=== PATIENT | male | born 1940 | race Caucasian/White ===

== ENCOUNTER 2019-06-25 09:30 | Outpatient (RCR) | payer SELFPAY | END 2020-01-20 14:22 | disposition home or self-care (01) | LOC: ANHCPRIII 09:30 | PROVIDERS: PCP Family Medicine; Visit Provider Internal Medicine Cardiovascular Disease | DX: I25.10 Atherosclerotic heart disease of native coronary artery without angina pectoris (principal) | CPT/HCPCS: 99199 ==

== ENCOUNTER 2020-07-14 10:10 | Outpatient (CLI) | payer MEDICARE, SELFPAY ==
--- NOTE | ~2020-07-14 | CT_ITS ---
EXAMINATION: CT lung screening DATE: 07/14/2020 10:38 INDICATION: Screening for malignant neoplasm. Personal history of tobacco dependence. TECHNIQUE: Computed tomography (CT) of the chest was performed without intravenous contrast. The dose -length product was 236.99 mGy-cm. Automated exposure control and iterative reconstruction technique were employed. COMPARISON: Chest dated 07/28/2018 FINDINGS: No significant pleural or pericardial effusion. Moderate size hiatal hernia. Heart size nor mal. No thoracic lymphadenopathy. Status post median sternotomy for CABG. There are pacemaker leads p resent. There is emphysema. There is lingular atelectasis/scarring. No endobronchial lesions. There a re a few calcified granulomas of the lung parenchyma. There are a few small SCATTERED 1-2 mm nodules which are not definitively calcified, likely benign. There is a 1.7 cm right renal cyst. IMPRESSION: 1. Lung-RADS category 2: Benign appearance or behavior. Continue annual screening with noncontrast lo w-dose chest CT in 12 months. Reviewed, dictated and finalized at location B. IMPRESSION: 1. Lung-RADS category 2: Benign appearance or behavior. Continue annual screeni ng with noncontrast low-dose chest CT in 12 months.
--- NOTE | ~2020-07-14 | US_ITS ---
EXAMINATION: US aorta [facility] scr[facility] DATE: 07/14/2020 11:25 CDT INDICATION: Hypertension, diabetes, obesity and high cholesterol TECHNIQUE: Grayscale, color Doppler, and pulsed Doppler images of the aorta and common iliac arteries were obtained. COMPARISON: None. FINDINGS: The proximal aorta measures 2.5 cm greatest sagittal dimension. The mid aorta measures 2.2 cm greates t sagittal dimension. The distal aorta measures 2.3 cm greatest sagittal dimension. The right common internal iliac artery measures 11 mm. The left common iliac artery measures 11 mm. There is moderate diffuse atherosclerosis. IMPRESSION: 1. Moderate diffuse atherosclerosis without abdominal aortic aneurysm. Reviewed, dictated and finalized at location B.
== END 2020-07-14 10:11 | disposition home or self-care (01) ==
PROVIDERS: PCP Family Medicine; Visit Provider Family Medicine
DX: Z12.2 Encounter for screening for malignant neoplasm of respiratory organs (principal); Z87.891 Personal history of nicotine dependence; Z13.6 Encounter for screening for cardiovascular disorders; I70.0 Atherosclerosis of aorta
CPT/HCPCS: 71271; 76706

== ENCOUNTER 2020-10-06 14:06 | Outpatient (CLI) | payer MEDICARE, SELFPAY ==
--- NOTE | ~2020-10-06 | US_ITS ---
EXAMINATION: US art doppler w press LE DATE: 10/06/2020 14:50 INDICATION: Peripheral vascular disease, unspecified. TECHNIQUE: Segmental pressures and plethysmographic and Doppler waveforms of the brachial and lower e xtremity arteries were obtained. COMPARISON: None. FINDINGS: Right and left brachial artery pressures of 144 mm Hg and 159 mm Hg, respectively, are concordant (no rmal difference <= 30 mmHg). The right high-thigh pressure index is 1.13 (normal > 1.2). The right ankle-brachial index (MAURILIO) is 1 .11 (normal >= 0.9-1.0). The right great toe-brachial index (TBI) is 0.72 (normal >= 0.65). Arterial Doppler waveforms are at least triphasic from common femoral artery to popliteal artery and biphasic at the ankle. The left below-knee pressure index is 1.21. The left MAURILIO could not be measured due to inability to cu ff-occlude the arteries. The left TBI is 0.64. Arterial Doppler waveforms are at least triphasic in c ommon femoral artery and biphasic from superficial femoral artery to the ankle. IMPRESSION: 1. Borderline-decreased left TBI, consistent with left-sided arterial occlusive disease. 2. No significant right-sided arterial occlusive disease. Reviewed, dictated and finalized at location A.
== END 2020-10-06 14:07 | disposition home or self-care (01) ==
PROVIDERS: PCP Family Medicine; Visit Provider Family Medicine
DX: I73.9 Peripheral vascular disease, unspecified (principal)
CPT/HCPCS: 93923

== ENCOUNTER 2022-05-16 09:23 | Outpatient (CLI) | payer MEDICARE, SELFPAY ==
[2022-05-16 20:52] LABS: Alanine Aminotransferase 16 U/L (6-50); Albumin Level 4.2 g/dL (3.5-5.1); Alkaline Phosphatase 46 U/L (38-126); Anion Gap 3 mmol/L (8-16); Aspartate Amino Transferase 44 U/L (17-59); Bilirubin,Total 0.4 mg/dL (0.2-1.3); Blood Urea Nitrogen 47 mg/dL (9-20); Calcium 9.7 mg/dL (8.4-10.2); Carbon Dioxide 33 mmol/L (22-30); Chloride 102 mmol/L (98-107); Estimated Glomerular Filt Rate 39; Glucose 74 mg/dL (65-110); Potassium 4.7 mmol/L (3.4-5.0); Sodium 138 mmol/L (137-145)
[2022-05-16 22:37] LABS: Hemoglobin A1C 5.5 % (<5.7)
== END 2022-05-16 09:24 | disposition home or self-care (01) ==
LOC: ANHGOSHLAB 09:24
PROVIDERS: PCP Family Medicine; Visit Provider Family Medicine
DX: I10 Essential (primary) hypertension (principal); E11.9 Type 2 diabetes mellitus without complications
CPT/HCPCS: 36415; 80053; 83036

== ENCOUNTER 2022-05-22 11:29 | Outpatient (CLI) | payer MEDICARE, SELFPAY ==
[2022-05-22 19:45] LABS: Add Urine Microscopic? YES; Appearance Urine Cloudy (Clear); Bilirubin Urine 1+ (Negative); Blood Urine 3+ (Negative); Color Urine Brown (Yellow); Glucose Urine UA Negative (Negative); Ketones Urine Negative (Negative); Leukocyte Esterase Ur Trace LEU/UL (Negative); Nitrate Urine Negative (Negative); Protein Urine 2+ mg/dL (Negative); Urobilinogen Urine 0.2 mg/dL (<2.0)
[2022-05-22 19:54] LABS: RBC Urine >75 /hpf (0-2); Squamous Epithelial Cell Urine Few /hpf (Few); WBC Urine 0-3 /hpf
== END 2022-05-22 11:30 | disposition home or self-care (01) ==
LOC: ANHGOSHLAB 11:31
PROVIDERS: PCP Family Medicine; Visit Provider Family Medicine
DX: R82.998 Other abnormal findings in urine (principal); R31.9 Hematuria, unspecified
CPT/HCPCS: 81001; 87086

== ENCOUNTER 2022-06-27 15:12 | Outpatient (CLI) | payer MEDICARE, SELFPAY ==
--- NOTE | ~2022-06-27 | CT_ITS ---
EXAMINATION: CT abdomen pelvis wo con DATE: 06/27/2022 15:32 INDICATION: Gross hematuria TECHNIQUE: Computed tomography (CT) of the abdomen and pelvis was performed without intravenous contr ast. The dose-length product was 210.37 mGy-cm. Automated exposure control and iterative reconstructi on technique were employed. COMPARISON: CT dated 07/01/2016. FINDINGS: Lung bases are unremarkable. Heart size normal. There is atherosclerosis. No significant pl eural or pericardial effusion. There is mild nonspecific bilateral perinephric stranding. There is a 1.3 cm right renal cyst anteriorly. There are gallstones. Small hiatal hernia. Moderate retained debr is in the stomach. Nonobstructive bowel pattern. There are bilateral renal arterial calcifications. No definite renal/ureteral stones. Small amount of gas in the nondependent aspect of the bladder lumen. Correlate for recent instrumentation. No bladde r stones or masses are seen. No lymphadenopathy. 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 Moderate lumbar spondylosis. IMPRESSION: 1. Small amount of nondependent gas in the bladder lumen which may be from recent instrumentation or infection. Correlate clinically. 2: Cholelithiasis. Reviewed, dictated and finalized at location A. IMPRESSION: 1. Small amount of nondependent gas in the bladder lumen which may be from rece nt instrumentation or infection. Correlate clinically. 2: Cholelithiasis.
== END 2022-06-27 15:13 | disposition home or self-care (01) ==
PROVIDERS: PCP Family Medicine; Visit Provider Urology
DX: R31.0 Gross hematuria (principal); K80.20 Calculus of gallbladder without cholecystitis without obstruction
CPT/HCPCS: 74176

== ENCOUNTER 2022-07-15 10:24 | Outpatient (CLI) | payer MEDICARE, SELFPAY ==
--- NOTE | 2022-07-15 10:36 | ECG_ITS ---
Measurements Intervals [place] Rate: P: NV: QRS: QRSD: T: QT: QTc: Interpretive Statements SINUS RHYTHM WITH FIRST DEGREE AV BLOCK ST DEVIATION AND MARKED T-WAVE ABNORMALITY IN THE ANTEROLATERAL LEADS, CONSIDER ISCHEMIA ST DEVIATION AND MARKED T-WAVE ABNORMALITY IN THE INFERIOR LEADS, CONSIDER ISCHEMIA PREMATURE VENTRICULAR CONTRACTION Electronically Signed On 07-16-2022 14:53:08 CDT by Oralia Hoover M.D.
[2022-07-15 13:14] LABS: INR 1.1; Prothrombin Time 13.5 Seconds (11.1-14.7)
[2022-07-15 13:15] LABS: Partial Thromboplastin Time 27.4 SECONDS (22.3-36.8)
[2022-07-15 13:22] LABS: Anion Gap 6 mmol/L (8-16); Blood Urea Nitrogen 38 mg/dL (9-20); Calcium 9.2 mg/dL (8.4-10.2); Carbon Dioxide 34 mmol/L (22-30); Chloride 105 mmol/L (98-107); Estimated Glomerular Filt Rate 39; Glucose 88 mg/dL (65-110); Potassium 4.5 mmol/L (3.4-5.0); Sodium 145 mmol/L (137-145)
== END 2022-07-15 10:25 | disposition home or self-care (01) ==
PROVIDERS: Anesthesiology; PCP Family Medicine; Visit Provider Urology
DX: Z01.812 Encounter for preprocedural laboratory examination (principal); Z01.810 Encounter for preprocedural cardiovascular examination; Z79.899 Other long term (current) drug therapy; N18.30 Chronic kidney disease, stage 3 unspecified; I12.9 Hypertensive chronic kidney disease with stage 1 through stage 4 chronic kidney disease, or unspecified chronic kidney disease
CPT/HCPCS: 36415; 80048; 85610; 85730; 93005

== ENCOUNTER 2022-07-18 01:31 | Day surgery (SDC) | payer MEDICARE, SELFPAY ==
--- NOTE | 2022-07-09 08:55 | PM.HPGS ---
History of Present Illness History of Present Illness Consent: Risks, benefits, and alternatives have been discussed and questions answered. Patient agrees to proceed with procedure. Chief complaint: gross hematuria Narrative: Israel Christianson is a 81 year old male recently underwent evaluation for gross hematuria. Cystoscopy in the office revealed a papillary lesion in the anterior bladder wall near the bladder neck, consistent with urothelial carcinoma. At the time of this dictation he has a CT scan of the abdomen and pelvis without contrast scheduled but yet to be done. He presents today for TURBT, bilateral retrograde pyelography and gemcitabine installation. He is aware the risk including, but not limited to, recurrent neoplasm requiring additional therapy, injury to the bladder. Review of Systems Cardiovascular: Cardiovascular: Denies chest pain, Denies lightheadedness, Denies palpitations and Denies dyspnea Respiratory: Respiratory: Denies dyspnea Gastrointestinal: Gastrointestinal: Denies diarrhea, Denies nausea and Denies vomiting Genitourinary: Genitourinary: Denies hematuria and Denies dysuria Endocrine: Endocrine: Denies palpitations PMFSH Past Medical History Medical History Bradycardia CAD in [place] artery Chronic venous insufficiency of lower extremity CKD (chronic kidney disease) stage 3, GFR 30-59 ml/min Dyslipidemia Essential (primary) hypertension GERD without esophagitis Type 2 diabetes mellitus without complications Ventral hernia Vitamin D deficiency Surgical History Surgical History History of angioplasty of peripheral vessel 12/2020: left common femoral artery and left superficial femoral artery angioplasty History of coronary artery bypass graft (~11/2014) 11/2014 History of hernia repair (~07/19/16) History of rectal surgery (~2009) 2009 and 2010 - repair of rectal tear History of ventral hernia repair 07/2016 Hx of cardiac pacemaker 07/2018 Hx of tonsillectomy (~1947) [place] teeth extracted (~1960) Family History Family History Father Family history of cardiovascular disease Mother Family history of Alzheimer's disease Family history of cardiovascular disease Sibling Family history of lung cancer Family history of cardiovascular disease Other Cerebrovascular accident Hypertension Social History Social History Smoking packs per day: 1 Smoking cigarettes per day: 20.0 Years smoked: 55 Smoking pack-years: 55.00 Smoking status: Current every day smoker Tobacco type: cigarettes Second hand tobacco smoke exposure: No Alcohol intake: former Alcohol use details: stopped drinking alcohol in 1981 Substance use: never Substance use type: does not use Lack of Transportation: No Lack of Food: Never True Current Housing: I Have Housing Concerned About Future Housing: No Difficulty Paying Gas/Electric Bills: No Difficulty Paying for Meds: No Currently Unemployed: No Education: Master's Degree or Higher Difficulty w/ Childcare or Family Care: No Living arrangements: with family Additional living arrangements comments: Occupation/Education: retired Gender identity (if verbalized by the patient): Male Sexual Orientation (if Verbalized by the Patient): Straight or Heterosexual Meds Home Medications and Allergies Home Medications Medication Instructions Recorded Confirmed Type clonidine HCl 0.2 mg tablet 0.2 mg PO DAILY 10/12/19 05/16/22 History hydrochlorothiazide 25 mg tablet 25 mg PO DAILY 10/12/19 05/16/22 History ticagrelor 90 mg tablet (Brilinta) 90 mg PO Q12H 10/12/19 05/16/22 History azilsartan medoxomil 80 mg tablet 80 mg PO DAILY 11/29/19 05/16/22 History (Edarbi) atorvastatin
[2022-07-10 13:14] VITALS: BMI 26.9
--- NOTE | 2022-07-10 13:27 | PC.NURSE ---
PRE-OP INSTRUCTIONS, PLEASE READ CAREFULLY Report to the Outpatient Waiting Room, entrance under the green pavilion located off [facility], at time _1000_ on date _07/18/22_. Planned Procedure Time: _1200_. Time changes happen often and if your time is changed the preop area will call you the afternoon before. - You and your visitor will be asked to self-screen and do not enter if you have any COVID symptoms. - Only one visitor is requested with a max of two and NO children visitors are allowed at this time. - The patient visitor may be requested to leave or wait in car when not with patient due to distancing restrictions. - A mask is optional within the hospital at this time. Patients may have clear liquids (water, carbonated beverages, clear teas, apple juice) until 3 hours prior to surgery (0900 AM) with a maximum of 20 ounces. - No food from midnight until time of surgery Take the following medications with a SIP of water the morning of surgery: _CLONIDINE_ DO NOT STOP ANY OF YOUR OTHER PRESCRIPTION MEDICATIONS PRIOR TO SURGERY ?EXCEPT THE FOLLOWING Medications to discontinue _BRILINTA PER DR. BECERRA'S INSTRUCTIONS_ Date to take last dose Please no make-up, nail arabic, hairspray, perfume, deodorant, or body powder the day of surgery. No jewelry (including any body piercings) or valuables the day of surgery, leave them at home. Please take a shower or bath the night before, or the morning of, surgery with an antibacterial soap. Wear comfortable, loose fitting clothing. - Jewelry must be removed prior to entering the operating room. Rings and piercings that are not removed may be cut off. - The hospital will not accept responsibility for valuables. - Please leave all valuables, including medications, at home the day of surgery. If you are going home after surgery, a licensed flag car driver must drive you home. - NO public transportation without another adult if you receive anesthesia. - We recommend that an adult stay with you for 24 hours following discharge. - We also recommend that you do not drive, make important decision, drink alcoholic beverages, or take any drugs that were not prescribed by your health care provider for at least 24 hours after your discharge time. Follow any additional instructions given to you from your surgeon. If you or anyone in your household have experienced Covid symptoms in the past week, please notify your surgeon or the nurse liaison at the phone number below for possible testing. Telephone instructions given to _PATIENT_and asked if any additional questions and then verbalized understanding. Patient advised to call surgeon office or pre surgery nurse liaison [phone] if any additional questions.
[2022-07-18] VITALS (11 sets, daily range): BP systolic 107–133; BP diastolic 40–107; PULSE 60–68; RESP 12–18; TEMP 36.2–36.3; O2SAT 6–100
--- NOTE | ~2022-07-18 | XR_ITS ---
EXAMINATION: XR retrograde pyelogram BI DATE: 07/18/2022 12:33 INDICATION: Gross hematuria. Bilateral retrograde pyelograms TECHNIQUE: 104 fluoroscopic images of the abdomen and pelvis were obtained during procedure performed by Dr. Hernandez. Radiologist was not present for the imaging or procedure. The amount of fluoroscopy t severo used during this procedure was 0.5 minutes. COMPARISON: CT abdomen pelvis dated 06/27/2022 FINDINGS: Retrograde contrast injection into the right ureter and renal collecting system demonstrates no filli ng defects, urothelial irregularities or fixed strictures. Retrograde contrast injection into the lef t ureter and renal collecting system demonstrates a few mobile lucent gas bubbles which change in siz e and configuration during the course of the injection. No other filling defects or urothelial irregu larities or fixed strictures. IMPRESSION: 1. Normal bilateral retrograde pyelograms. Reviewed, dictated and finalized at location A.
--- NOTE | 2022-07-18 06:27 | WPDHPUPDATE1 ---
History and Physical Update Update Date/Time: 07/18/22 06:27 History and Physical has been reviewed, including an updated exam of the patient. There are NO changes in the patient's condition. Risks, benefits, and alternatives have been discussed and questions answered. Patient agrees to proceed with procedure.
[2022-07-18] MEDS: LACTATED RINGERS 1,000 ML 30 ML IV CONT ×2 (11:00→14:02)
--- NOTE | 2022-07-18 11:22 | WPDANESEPPF ---
Anes - Initial Pre Proc Eval Procedure: Operation Date: 07/18/22 12:00 Proposed Procedures p Trans Urethral Resection Bladder Tumor, - Mike Hernandez MD s Bilateral retrograde pyelogram with Gemcitabine Instillation - Mike Hernandez MD Date/Time: 07/18/22 11:22 Surgeon: Mike Hernandez MD Pre Op Diagnosis: gross hematuria Patient Data Age: 81 Gender: M Height: 1.7 m Weight: 78.6 kg Last Vital Signs Temp 36.2 C L 07/18/22 09:50 Pulse 64 07/18/22 09:50 Resp 16 07/18/22 09:50 BP 114/46 L 07/18/22 09:50 Pulse Ox 99 07/18/22 09:50 O2 Del Method Room Air 07/18/22 09:50 Allergies Allergy/AdvReac Type Severity Reaction Status Date / Time aspirin Allergy Intermediate Hives Verified 07/18/22 10:12 Home Medications Medication Instructions Recorded Confirmed Type clonidine HCl 0.2 mg tablet 0.2 mg PO DAILY 10/12/19 07/18/22 History hydrochlorothiazide 25 mg tablet 25 mg PO DAILY 10/12/19 07/18/22 History ticagrelor 90 mg tablet (Brilinta) 90 mg PO Q12H 10/12/19 07/18/22 History azilsartan medoxomil 80 mg tablet 80 mg PO DAILY 11/29/19 07/18/22 History (Edarbi) omeprazole 20 mg capsule,delayed 20 mg PO DAILY #90 caps 02/04/22 07/18/22 Rx release cholecalciferol (vitamin D3) 50 50 mcg PO DAILY #90 tabs 04/10/22 07/18/22 Rx mcg (2,000 unit) tablet atorvastatin 40 mg tablet 40 mg PO QHS #90 tabs 07/09/22 07/18/22 Rx fenofibrate 54 mg tablet 54 mg PO DAILY #90 tabs 07/09/22 07/18/22 Rx Patient hx anesthesia problems: none Family hx anesthesia problems: none Results Review: All pre-operative results and documents have been reviewed as part of the pre-operative evaluation. [facility] Past Medical History Medical History Bradycardia CAD in [place] artery Chronic venous insufficiency of lower extremity CKD (chronic kidney disease) stage 3, GFR 30-59 ml/min Dyslipidemia Essential (primary) hypertension GERD without esophagitis Type 2 diabetes mellitus without complications Ventral hernia Vitamin D deficiency Surgical History Surgical History History of angioplasty of peripheral vessel 12/2020: left common femoral artery and left superficial femoral artery angioplasty History of coronary artery bypass graft (~11/2014) 11/2014 History of hernia repair (~07/19/16) History of rectal surgery (~2009) 2009 and 2010 - repair of rectal tear History of ventral hernia repair 07/2016 Hx of cardiac pacemaker 07/2018 Hx of tonsillectomy (~1947) [place] teeth extracted (~1960) Family History Family History Father Family history of cardiovascular disease Mother Family history of Alzheimer's disease Family history of cardiovascular disease Sibling Family history of lung cancer Family history of cardiovascular disease Other Cerebrovascular accident Hypertension Social History Social History Smoking packs per day: 1 Smoking cigarettes per day: 20.0 Years smoked: 55 Smoking pack-years: 55.00 Smoking status: Current every day smoker Tobacco type: cigarettes Second hand tobacco smoke exposure: Yes Alcohol intake: former Alcohol use details: RECOVERING ALCOHOLIC QUIT 1981 Substance use: never Substance use type: does not use Lack of Transportation: No Lack of Food: Never True Current Housing: I Have Housing Concerned About Future Housing: No Difficulty Paying Gas/Electric Bills: No Difficulty Paying for Meds: No Currently Unemployed: No Education: Master's Degree or Higher Difficulty w/ Childcare or Family Care: No Living arrangements: with family Additional living arrangements comments: Occupation/Education: retired Gender identity (if verbalized by the patient): Male Sexual Orientati
[2022-07-18] MEDS: ceFAZolin 2 GM/D5W 50 ML 2 GM/50 ML BAG IVPB (11:58)
[2022-07-18] MEDS: SODIUM CHLORIDE 0.9% IV 23.7 ML, GEMCITABINE HCL 1,000 MG BLADDER ×2 (12:22→12:23)
[2022-07-18] MEDS: LIDOCAINE HCL 2% GEL UROJET 10 ML PKG MUCOUS MEM (12:25)
--- NOTE | 2022-07-18 12:33 | W.PM.PROC2 ---
Procedure Note - Detailed Date of Procedure 07/18/22 Pre-op Diagnosis Bladder cancer Post-op Diagnosis Same Procedure Performed 1. Cystoscopy with bilateral retrograde pyelography 2. TURBT medium Surgeon Mike Hernandez MD Anesthesia General Description of Procedure was brought to the operative suite prepped draped in routine sterile fashion while in dorsal lithotomy position after the uneventful induction of a general LMA anesthetic. A 21 F rigid cystoscope was placed in his bladder. He has no urethral stricture with very moderate prostatic hyperplasia for a man his age. He has lateral lobe enlargement without significant median lobe. Bladder shows slight trabeculation. As a single orthotopic ureteral orifice bilaterally. Eight F ball-tip catheter was used to obtain bilateral retrograde pyelograms which showed no evidence of upper urinary tract filling defect obstruction or other identifiable pathology. He has had a noncontrast CT scan the abdomen and pelvis recently that shows normal renal parenchyma. His bladder mucosa is a perfectly normal with the exception of a papillary neoplasm at the 12 o'clock position in the anterior bladder wall near the bladder neck. Prostatic urethra shows no evidence of urothelial neoplastic changes. Using a loop electrode this area of abnormality was resected its entirety with an attempt made to include detrusor muscle for pathological evaluation of invasion. The base and periphery were cauterized with both a loop electrode and a rollerball electrode. Scope was removed patient was taken recovery room good condition. Drains Yes Packing No Pathology Yes Complications No immediate complications Condition Stable Disposition PACU
--- NOTE | 2022-07-18 12:40 | W.PM.PROC2 ---
Procedure Note - Detailed Date of Procedure 07/18/22 Pre-op Diagnosis Bladder cancer Post-op Diagnosis Same Procedure Performed Gemcitabine installation Surgeon Mike Hernandez MD Anesthesia None Description of Procedure With the patient in the supine position, a 16F Guzman catheter is placed using sterile technique. Using a protective facemask, gown and double layer of gloves Gemcitabine 2gm in 100cc saline is administered through the catheter/into the bladder. The catheter is then plugged. Patient was instructed to lie supine x20min, then to roll both the left and right x20 min. each. Total dwell time will be 60 min., after which the bladder will be drained and catheter removed. Drains No Packing No
[2022-07-18] MEDS: fentaNYL CITRATE INJ (*CRX) 100 MCG/2 ML VIAL 25 MCG IV PUSH ×3 (12:54→13:13)
[2022-07-18] MEDS: SODIUM CHLORIDE 0.9% IV 50 ML BAG 150 ML IRRIGATION (13:40)
[2022-07-18] MEDS: oxyCODONE HCL (*CRX) 5 MG TAB IR PO (14:32)
--- NOTE | 2022-07-18 16:06 | SUR.PHASEII ---
late entry at 1500. pt diastolic was in the 40s. pt preop diastolic was in the 40s. this nurse called dr aranda and informed his about his low diastolic. pt is asymptomatic. had 1 liter of fluid today. hx of pacemaker. pt denied of any dizziness or lightheadedness with ambulation or positional changes. HR in the 60s. pt A&Ox4. appears well looking and hemodynamically stable.
== END 2022-07-18 15:15 | disposition home or self-care (01) ==
PROVIDERS: PCP Family Medicine; Visit Provider Urology
PROC: 0TBB8ZZ Excision of Bladder, Via Natural or Artificial Opening Endoscopic (ICD-10-PCS; CPT 52235; principal; 2022-07-18 12:00)
PROC: (CPT 52352; 2022-07-18 12:00)
DX: C67.3 Malignant neoplasm of anterior wall of bladder (principal); N40.0 Benign prostatic hyperplasia without lower urinary tract symptoms; I25.10 Atherosclerotic heart disease of native coronary artery without angina pectoris; I12.9 Hypertensive chronic kidney disease with stage 1 through stage 4 chronic kidney disease, or unspecified chronic kidney disease; E11.22 Type 2 diabetes mellitus with diabetic chronic kidney disease; N18.30 Chronic kidney disease, stage 3 unspecified; I87.2 Venous insufficiency (chronic) (peripheral); K21.9 Gastro-esophageal reflux disease without esophagitis; E55.9 Vitamin D deficiency, unspecified; E78.5 Hyperlipidemia, unspecified; Z95.1 Presence of aortocoronary bypass graft; Z95.0 Presence of cardiac pacemaker; F17.210 Nicotine dependence, cigarettes, uncomplicated; Z79.01 Long term (current) use of anticoagulants
CPT/HCPCS: 52235; 51720; 36415; 74420; 80048; 85610; 85730; 88305; 93005; A9270; C1758; C1769; C1887; J0690; J1100; J2405; J2704; J3010; J7120; J9201

== ENCOUNTER 2022-11-13 09:25 | Outpatient (CLI) | payer MEDICARE, SELFPAY ==
[2022-11-13 19:09] LABS: Alanine Aminotransferase 22 U/L (6-50); Albumin Level 4.4 g/dL (3.5-5.1); Alkaline Phosphatase 43 U/L (38-126); Anion Gap 6 mmol/L (8-16); Aspartate Amino Transferase 54 U/L (17-59); Basophils Percent Auto 0.4 % (0.2-1.2); Bilirubin,Total 0.5 mg/dL (0.2-1.3); Blood Urea Nitrogen 47 mg/dL (9-20); Calcium 9.5 mg/dL (8.4-10.2); Carbon Dioxide 32 mmol/L (22-30); Chloride 102 mmol/L (98-107); Cholesterol 127 mg/dL (0-200); Eosinophils Absolute Auto 0.2 K/mm3 (0-0.3); Eosinophils Percent Auto 2.5 % (0-4.4); Estimated Glomerular Filt Rate 42; Glucose 102 mg/dL (65-110); HDL Direct 38 mg/dL; Hemoglobin 11.5 g/dL (14.0-18.0); Immature Granulocyte Absolute 0.02 K/mm3 (0.00-0.031); Immature Granulocyte Percent A 0.3 % (0-0.5); Lymphocytes Absolute Auto 1.24 K/mm3 (0.9-3.2); Lymphocytes Percent Auto 18.5 % (18.3-44.2); Mean Corpuscular HGB Conc 30.3 g/dl (32-36); Mean Corpuscular Hemoglobin 27.5 pg (26-34); Mean Corpuscular Volume 90.9 fl (80-100); Monocytes Absolute Auto 0.7 K/mm3 (0.1-0.6); Monocytes Percent Auto 9.8 % (2.6-8.5); Neutrophils Absolute Auto 4.6 K/mm3 (1.3-6.7); Neutrophils Percent Auto 68.5 % (45.5-73.1); Platelet Count Result 170 k/mm3 (150-375); Potassium 4.8 mmol/L (3.4-5.0); Red Blood Count 4.18 M/mm3 (4.6-6.20); Red Cell Distribution Width 13.4 % (11.5-14.5); Sodium 140 mmol/L (137-145); Triglycerides 89 mg/dL (<150); White Blood Count 6.7 K/mm3 (4.5-10.0)
[2022-11-13 19:20] LABS: LDL Cholesterol Direct 57 mg/dL
[2022-11-13 19:47] LABS: Creatinine Urine 79.5 mg/dL
[2022-11-13 19:51] LABS: MALB Creatinine Ratio 34.6 mg/g (0-30); Microalbumin Urine Random 27.5 mg/L (0-16.7)
[2022-11-13 19:59] LABS: Vitamin D 25 Hydroxy 68.8 ng/mL
== END 2022-11-13 09:26 | disposition home or self-care (01) ==
LOC: ANHGOSHLAB 09:26
PROVIDERS: PCP Family Medicine; Visit Provider Family Medicine
DX: Z12.5 Encounter for screening for malignant neoplasm of prostate (principal); I87.2 Venous insufficiency (chronic) (peripheral); E78.5 Hyperlipidemia, unspecified; E11.9 Type 2 diabetes mellitus without complications; I10 Essential (primary) hypertension; R00.1 Bradycardia, unspecified; E55.9 Vitamin D deficiency, unspecified; E53.8 Deficiency of other specified B group vitamins
CPT/HCPCS: 36415; 80053; 80061; 82043; 82306; 82607; 83036; 84153; 84443; 85025; G0103

== ENCOUNTER 2023-05-19 09:16 | Outpatient (CLI) | payer MEDICARE, SELFPAY ==
[2023-05-19 13:45] LABS: Basophils Percent Auto 0.3 % (0.2-1.2); Eosinophils Absolute Auto 0.2 K/mm3 (0-0.3); Eosinophils Percent Auto 2.4 % (0-4.4); Hemoglobin 8.7 g/dL (14.0-18.0); Immature Granulocyte Absolute 0.02 K/mm3 (0.00-0.031); Immature Granulocyte Percent A 0.3 % (0-0.5); Lymphocytes Absolute Auto 0.99 K/mm3 (0.9-3.2); Lymphocytes Percent Auto 14.9 % (18.3-44.2); Mean Corpuscular HGB Conc 27.2 g/dl (32-36); Mean Corpuscular Hemoglobin 22.7 pg (26-34); Mean Corpuscular Volume 83.3 fl (80-100); Mean Platelet Volume 10.8 fl (7.4-10.4); Monocytes Absolute Auto 0.7 K/mm3 (0.1-0.6); Monocytes Percent Auto 10.3 % (2.6-8.5); Neutrophils Absolute Auto 4.8 K/mm3 (1.3-6.7); Neutrophils Percent Auto 71.8 % (45.5-73.1); Platelet Count Result 185 k/mm3 (150-375); Red Blood Count 3.84 M/mm3 (4.6-6.20); Red Cell Distribution Width 14.3 % (11.5-14.5); White Blood Count 6.6 K/mm3 (4.5-10.0)
[2023-05-19 13:52] LABS: Alanine Aminotransferase 16 U/L (6-50); Albumin Level 4.3 g/dL (3.5-5.1); Alkaline Phosphatase 49 U/L (38-126); Anion Gap 6 mmol/L (8-16); Aspartate Amino Transferase 64 U/L (17-59); Bilirubin,Total 0.5 mg/dL (0.2-1.3); Blood Urea Nitrogen 36 mg/dL (9-20); Calcium 9.4 mg/dL (8.4-10.2); Carbon Dioxide 31 mmol/L (22-30); Chloride 104 mmol/L (98-107); Estimated Glomerular Filt Rate 49; Glucose 83 mg/dL (65-110); Potassium 4.6 mmol/L (3.4-5.0); Sodium 141 mmol/L (137-145)
[2023-05-19 14:32] LABS: Hypochromasia 2+ (NORMAL); Platelet Estimate Adequate (Adequate); Schistocytes None Seen (NORMAL)
[2023-05-19 15:45] LABS: Iron 35 ug/dL (49-181)
[2023-05-19 15:57] LABS: Percent Iron Saturation 7 % (20-50)
[2023-05-19 16:22] LABS: Ferritin 7.48 ng/mL (11.1-264)
== END 2023-05-19 09:17 | disposition home or self-care (01) ==
LOC: ANHGOSHLAB 09:17
PROVIDERS: PCP Family Medicine; Visit Provider Family Medicine
DX: D64.9 Anemia, unspecified (principal); I10 Essential (primary) hypertension
CPT/HCPCS: 36415; 80053; 82728; 83540; 83550; 85025

== ENCOUNTER 2023-07-15 00:56 | Day surgery (SDC) | payer MEDICARE, SELFPAY ==
[2023-07-03 14:43] VITALS: BMI 26.6
--- NOTE | 2023-07-11 10:49 | SUR.PREOP ---
Patient called regarding upcoming procedure. Reviewed preop instructions, appointment times, and procedure prep.
[2023-07-15 08:41] VITALS: BP 140/47; PULSE 72; RESP 18; TEMP 36.5; O2SAT 100
--- NOTE | 2023-07-15 08:45 | SUR.PREOP ---
Pt states he ate breakfast and lunch yesterday before taking his bowel prep. Pt states he is not sure if his last dose of Brillinta was 3-28 or 3-[address]. Dr. Cifuentes notified.
[2023-07-15] MEDS: LACTATED RINGERS 1,000 ML 150 ML IV CONT (08:56)
--- NOTE | 2023-07-15 09:02 | PM.HPGS ---
History of Present Illness History of Present Illness Consent: Risks, benefits, and alternatives have been discussed and questions answered. Patient agrees to proceed with procedure. 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 Chronic venous insufficiency of lower extremity CKD (chronic kidney disease) stage 3, GFR 30-59 ml/min Colon polyp Dyslipidemia Essential (primary) hypertension GERD without esophagitis History of colon polyps Type 2 diabetes mellitus without complications Ventral hernia Vitamin D deficiency Surgical History Surgical History History of angioplasty of peripheral vessel 12/2020: left common femoral artery and left superficial femoral artery angioplasty History of coronary artery bypass graft (~11/2014) 11/2014 History of hernia repair (~07/19/16) History of rectal surgery (~2009) 2009 and 2010 - repair of rectal tear History of transurethral resection of bladder tumor (TURBT) (~07/2022) History of ventral hernia repair 07/2016 Hx of cardiac pacemaker 07/2018 Hx of tonsillectomy (~194) [place] teeth extracted (~1960) Family History Family History Father Family history of cardiovascular disease Mother Family history of Alzheimer's disease Family history of cardiovascular disease Sibling Family history of lung cancer Family history of cardiovascular disease Other Cerebrovascular accident Hypertension Social History Social History Smoking packs per day: 1 Smoking cigarettes per day: 20.0 Years smoked: 55 Smoking pack-years: 55.00 Smoking status: Current every day smoker Tobacco type: cigarettes Second hand tobacco smoke exposure: Yes Smoking end date: 10/23/22 Alcohol intake: former Alcohol use details: RECOVERING ALCOHOLIC QUIT 1981 Substance use: former Substance use type: does not use Lack of Transportation: No Lack of Food: Never True Current Housing: I Have Housing Concerned About Future Housing: No Difficulty Paying Gas/Electric Bills: No Difficulty Paying for Meds: No Currently Unemployed: No Education: Master's Degree or Higher Difficulty w/ Childcare or Family Care: No Living arrangements: with family Additional living arrangements comments: Occupation/Education: retired Gender identity (if verbalized by the patient): Male Sexual Orientation (if Verbalized by the Patient): Straight or Heterosexual Spiritual care concerns: No Meds Home Medications and Allergies Home Medications Medication Instructions Recorded Confirmed Type clonidine HCl 0.2 mg tablet 0.2 mg PO DAILY 10/12/19 07/03/23 History hydrochlorothiazide 25 mg tablet 25 mg PO DAILY 10/12/19 07/03/23 History azilsartan medoxomil 80 mg tablet 80 mg PO DAILY 11/29/19 07/03/23 History (Edarbi) ticagrelor 60 mg tablet (Brilinta) 60 mg PO BID 11/13/22 07/15/23 History atorvastatin 40 mg tablet 40 mg PO QHS #90 tabs 03/31/23 07/03/23 Rx cholecalciferol (vitamin D3) 50 50 mcg PO DAILY #90 tabs 03/31/23 07/03/23 Rx mcg (2,000 unit) tablet fenofibrate 54 mg tablet 54 mg PO DAILY #90 tabs 03/31/23 07/03/23 Rx omeprazole 20 mg capsule,delayed 20 mg PO DAILY #90 caps 03/31/23 07/03/23 Rx release ferrous sulfate 325 mg (65 mg 325 mg PO BID #180 tabs 05/20/23 07/15/23 Rx iron) tablet,delayed release Allergies Allergy/AdvReac Type Severity Reaction Status Date / Time aspirin Allergy Intermediat
--- NOTE | 2023-07-15 09:07 | WPDANESEPPF ---
Anes - Initial Pre Proc Eval Procedure: Operation Date: 07/15/23 10:00 Proposed Procedures p Colonoscopy - John Gonzalez MD Date/Time: 07/15/23 09:07 Surgeon: John Gonzalez MD Pre Op Diagnosis: hx colon polyps, anemia Patient Data Age: 82 Gender: M Height: 1.7 m Weight: 79.9 kg Last Vital Signs Temp 97.7 F 07/15/23 08:41 Pulse 72 07/15/23 08:41 Resp 18 07/15/23 08:41 BP 140/47 L 07/15/23 08:41 Pulse Ox 100 07/15/23 08:41 O2 Del Method Room Air 07/15/23 08:41 Allergies Allergy/AdvReac Type Severity Reaction Status Date / Time aspirin Allergy Intermediate Hives Verified 07/15/23 08:39 Home Medications Medication Instructions Recorded Confirmed Type clonidine HCl 0.2 mg tablet 0.2 mg PO DAILY 10/12/19 07/03/23 History hydrochlorothiazide 25 mg tablet 25 mg PO DAILY 10/12/19 07/03/23 History azilsartan medoxomil 80 mg tablet 80 mg PO DAILY 11/29/19 07/03/23 History (Edarbi) ticagrelor 60 mg tablet (Brilinta) 60 mg PO BID 11/13/22 07/15/23 History atorvastatin 40 mg tablet 40 mg PO QHS #90 tabs 03/31/23 07/03/23 Rx cholecalciferol (vitamin D3) 50 50 mcg PO DAILY #90 tabs 03/31/23 07/03/23 Rx mcg (2,000 unit) tablet fenofibrate 54 mg tablet 54 mg PO DAILY #90 tabs 03/31/23 07/03/23 Rx omeprazole 20 mg capsule,delayed 20 mg PO DAILY #90 caps 03/31/23 07/03/23 Rx release ferrous sulfate 325 mg (65 mg 325 mg PO BID #180 tabs 05/20/23 07/15/23 Rx iron) tablet,delayed release Patient hx anesthesia problems: none Family hx anesthesia problems: none Results Review: All pre-operative results and documents have been reviewed as part of the pre-operative evaluation. 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 Chronic venous insufficiency of lower extremity CKD (chronic kidney disease) stage 3, GFR 30-59 ml/min Colon polyp Dyslipidemia Essential (primary) hypertension GERD without esophagitis History of colon polyps Type 2 diabetes mellitus without complications Ventral hernia Vitamin D deficiency Surgical History Surgical History History of angioplasty of peripheral vessel 12/2020: left common femoral artery and left superficial femoral artery angioplasty History of coronary artery bypass graft (~11/2014) 11/2014 History of hernia repair (~07/19/16) History of rectal surgery (~2009) 2009 and 2010 - repair of rectal tear History of transurethral resection of bladder tumor (TURBT) (~07/2022) History of ventral hernia repair 07/2016 Hx of cardiac pacemaker 07/2018 Hx of tonsillectomy (~1947) [place] teeth extracted (~1960) Family History Family History Father Family history of cardiovascular disease Mother Family history of Alzheimer's disease Family history of cardiovascular disease Sibling Family history of lung cancer Family history of cardiovascular disease Other Cerebrovascular accident Hypertension Social History Social History Smoking packs per day: 1 Smoking cigarettes per day: 20.0 Years smoked: 55 Smoking pack-years: 55.00 Smoking status: Current every day smoker Tobacco type: cigarettes Second hand tobacco smoke exposure: Yes Smoking end date: 10/23/22 Alcohol intake: former Alcohol use details: RECOVERING ALCOHOLIC QUIT 1981 Substance use: former Substance use type: does not use Lack of Transportation: No Lack of Food: Never True Current Housing: I Have Housing Concerned About Future Housing: No Difficulty Paying Gas/Electric Bills: No Difficulty Paying for Meds: No Currently Unemployed: No Education: Master's Degree or Higher Difficulty w/ Childcare or Fa
[2023-07-15 09:25] VITALS: BP 94/45; PULSE 60; RESP 18; O2SAT 95
[2023-07-15 09:35] VITALS: BP 107/51; PULSE 60; RESP 16; O2SAT 98
[2023-07-15 09:45] VITALS: BP 127/57; PULSE 60; RESP 23; O2SAT 100
== END 2023-07-15 09:53 | disposition home or self-care (01) ==
PROVIDERS: PCP Family Medicine; Visit Provider Internal Medicine Gastroenterology
PROC: 0DJD8ZZ Inspection of Lower Intestinal Tract, Via Natural or Artificial Opening Endoscopic (ICD-10-PCS; CPT 45378; principal; 2023-07-15 10:00)
DX: D64.9 Anemia, unspecified (principal); D12.3 Benign neoplasm of transverse colon; K64.8 Other hemorrhoids; K57.30 Diverticulosis of large intestine without perforation or abscess without bleeding; E78.5 Hyperlipidemia, unspecified; I12.9 Hypertensive chronic kidney disease with stage 1 through stage 4 chronic kidney disease, or unspecified chronic kidney disease; N18.30 Chronic kidney disease, stage 3 unspecified; K21.9 Gastro-esophageal reflux disease without esophagitis; E11.9 Type 2 diabetes mellitus without complications; E55.9 Vitamin D deficiency, unspecified; I25.10 Atherosclerotic heart disease of native coronary artery without angina pectoris; I87.2 Venous insufficiency (chronic) (peripheral); F17.210 Nicotine dependence, cigarettes, uncomplicated; Z79.02 Long term (current) use of antithrombotics/antiplatelets; Z98.890 Other specified postprocedural states; Z95.1 Presence of aortocoronary bypass graft; Z95.0 Presence of cardiac pacemaker; Z85.51 Personal history of malignant neoplasm of bladder; Z80.1 Family history of malignant neoplasm of trachea, bronchus and lung; Z82.49 Family history of ischemic heart disease and other diseases of the circulatory system
CPT/HCPCS: 45385; 88305; J2704; J7120

== ENCOUNTER 2023-12-16 09:15 | Outpatient (CLI) | payer MEDICARE, SELFPAY ==
[2023-12-16 14:54] LABS: Basophils Percent Auto 0.4 % (0.2-1.2); Eosinophils Absolute Auto 0.1 K/mm3 (0-0.3); Eosinophils Percent Auto 1.1 % (0-4.4); Hematocrit 40.4 % (42.0-52.0); Hemoglobin 12.1 g/dL (14.0-18.0); Immature Granulocyte Absolute 0.02 K/mm3 (0.00-0.031); Immature Granulocyte Percent A 0.4 % (0-0.5); Lymphocytes Percent Auto 14.4 % (18.3-44.2); Mean Corpuscular Hemoglobin 27.3 pg (26-34); Mean Corpuscular Volume 91.2 fl (80-100); Mean Platelet Volume 11.3 fl (7.4-10.4); Monocytes Absolute Auto 0.6 K/mm3 (0.1-0.6); Monocytes Percent Auto 10.1 % (2.6-8.5); Neutrophils Absolute Auto 4.1 K/mm3 (1.3-6.7); Neutrophils Percent Auto 73.6 % (45.5-73.1); Platelet Count Result 184 k/mm3 (150-375); Red Blood Count 4.43 M/mm3 (4.6-6.20); White Blood Count 5.5 K/mm3 (4.5-10.0)
[2023-12-16 15:00] LABS: Alanine Aminotransferase 15 U/L (6-50); Albumin Level 4.3 g/dL (3.5-5.1); Alkaline Phosphatase 44 U/L (38-126); Anion Gap 10 mmol/L (4-12); Aspartate Amino Transferase 60 U/L (17-59); Bilirubin,Total 0.5 mg/dL (0.2-1.3); Blood Urea Nitrogen 42 mg/dL (9-20); Calcium 9.7 mg/dL (8.4-10.2); Carbon Dioxide 32 mmol/L (22-30); Chloride 99 mmol/L (98-107); Cholesterol 104 mg/dL (0-200); Estimated Glomerular Filt Rate 36; Glucose 102 mg/dL (65-110); HDL Direct 34 mg/dL; Potassium 4.6 mmol/L (3.4-5.0); Sodium 141 mmol/L (137-145); Triglycerides 100 mg/dL (<150)
[2023-12-16 15:03] LABS: Iron 77 ug/dL (49-181)
[2023-12-16 15:10] LABS: LDL Cholesterol Direct 41 mg/dL
[2023-12-16 15:18] LABS: Percent Iron Saturation 20 % (20-50)
[2023-12-16 15:29] LABS: Prostate Specific Antigen 3.9 ng/mL (< OR = 4.0)
[2023-12-16 15:33] LABS: Hemoglobin A1C 6.1 % (<5.7)
[2023-12-16 16:04] LABS: Folic Acid 7.4 ng/mL (2.76->20)
[2023-12-16 16:59] LABS: Vitamin D 25 Hydroxy 55.8 ng/mL
== END 2023-12-16 09:16 | disposition home or self-care (01) ==
PROVIDERS: PCP Family Medicine; Visit Provider Family Medicine
DX: Z00.00 Encounter for general adult medical examination without abnormal findings (principal); R73.03 Prediabetes; D64.9 Anemia, unspecified; E78.5 Hyperlipidemia, unspecified; I73.9 Peripheral vascular disease, unspecified; Z12.5 Encounter for screening for malignant neoplasm of prostate; E55.9 Vitamin D deficiency, unspecified; I12.9 Hypertensive chronic kidney disease with stage 1 through stage 4 chronic kidney disease, or unspecified chronic kidney disease; N18.31 Chronic kidney disease, stage 3a
CPT/HCPCS: 36415; 80053; 80061; 82306; 82607; 82728; 82746; 83036; 83540; 83550; 84153; 84443; 85025; G0103

== ENCOUNTER 2024-06-01 10:21 | Outpatient (CLI) | payer MEDICARE, SELFPAY ==
--- OUTSIDE RECORDS SUMMARY | 2024-06-01 10:32 | XMS_ITS | Referral Summary ---
Author Organization [facility] D Address [address] [place] [id number] Care Team Providers Care Sales Ledger Administrator Name Role Phone Laura Bartlett MD Primary Care Provider Encounters Date Type Department Care Team Description 05/25/2024 Orders Only [facility] Cardiology [address] [place] [phone] Filippo Moyer MD Cardiac pacemaker (Primary Dx); History of syncope; AV heart block 05/25/2024 8:45 AM INTERNET MARKETING ANALYST Ancillary Procedure [facility] Cardiology [address] [place] [phone] Cardiac pacemaker; AV block from Last 3 Months Allergies Active Allergy Reactions Criticality Noted Date Comments Aspirin Hives,Rash Medium Medications atorvastatin (LIPITOR) 40 mg tablet TAKE ONE TABLET BY MOUTH ONCE DAILY AT BEDTIME 30 tablet 8 Active fenofibrate (TRICOR) 54 mg tablet TAKE ONE TABLET BY MOUTH ONCE DAILY 30 tablet 8 Active metFORMIN (GLUMETZA) 500 mg 24 hr tablet Take 1 tablet (500 mg total) by mouth daily with breakfast Active ergocalciferol (VITAMIN D) 50,000 unit capsule Take 1 capsule (50,000 Units total) by mouth once a week Active cholecalciferol (VITAMIN D-3) 2000 unit tablet Take 1 tablet (2,000 Units total) by mouth daily 2 Active omeprazole (PriLOSEC) 20 mg capsule 2 Active hydroCHLOROthia zide (HYDRODIURIL) 25 mg tablet Take 1 Tablet (25 mg) by mouth daily. 90 tablet 3 4 Active ticagrelor (Brilinta) 60 mg tablet Take 1 Tablet (60 mg) by mouth 2 times daily. 180 tablet 1 4 Active azilsartan (Edarbi) 80 mg Take 1 Tablet (80 mg) by mouth daily. 90 tablet 1 4 Active cloNIDine (CATAPRES) 0.2 mg tablet Take 1 Tablet (0.2 mg) by mouth daily. 90 tablet 1 4 Active Active Problems Problem Noted Date Diagnosed Date Bilateral carotid artery stenosis 12/18/2023 Assessment & Plan (12/18/2023 10:44 AM CDT): Moderate 50-69% stenosis of bilateral internal carotid arteries based on carotid duplex at [facility]. Continue risk factor modification including Brilinta, Lipitor and good blood pressure control. Follow up in 1 year with repeat carotid duplex. Hx of CABG 10/27/2018 Cardiac pacemaker 07/30/2018 Overview (07/30/2018): Biotronik Dual Pacemaker. Dx; High Grade AVB, Syncope. DOI 07/27/2018-João. Biotronik remote monitoring. Office pacemaker checks Q1 yr. Coronary artery disease invo [place]ving [place] coronary artery of [place] heart without angina pectoris 01/13/2017 Assessment & Plan (01/19/2018 10:59 AM CDT): No symptoms of myocardial ischemia. He is allergic to aspirin, so he is on Brilinta. Assessment & Plan (01/13/2017 3:08 PM CDT): No symptoms of myocardial ischemia. He is allergic to aspirin, so will continue Brilinta. Essential hypertension 01/13/2017 Assessment & Plan (12/18/2023 10:44 AM CDT): Stable continue hydrochlorothiazide Assessment & Plan (01/19/2018 11:00 AM CDT): Blood pressure is adequately controlled on current regimen. No change was made. Assessment & Plan (01/13/2017 3:09 PM CDT): Blood pressure is adequately controlled on current regimen. No change was made. Mixed hyperlipidemia 01/13/2017 Assessment & Plan (12/18/2023 10:44 AM CDT): Stable continue Lipitor 40 mg Assessment & Plan (01/19/2018 11:00 AM CDT): On chronic lipid lowering therapy with good control. No changes made. Assessment & Plan (01/13/2017 3:09 PM CDT): On chronic lipid lowering therapy with good control. No changes made. Resolved Problems Problem Noted Date Diagnosed Date Resolved Date Encounter for postoperative care 01/05/2015 01/13/2017 Overview (07/19/2016): Post surgical visit Social History Tobacco Use Types Packs/Day Years Used Date Smoking Tobacco: Light Smoker Smokeless Tobacco: Never Tobacco Cessation:Ready to Q uit: Not Asked; Counseling Given: Not Answered Comments:Smoking History Packs/day: 1 Packs Alcohol Use Standard Drinks/Week Comments No 0 (1 standard drink = 0.6 oz pur e alcohol) Sex and Gender Information Value Date Recorded Sex Assigned at Not on file Legal Sex Male 11:43 AM INTERNET MARKETING ANALYST Gender Identity Not on file Sexual Orientation Not on file Last Filed Vital Signs Vital Sign Reading Time Taken Comments Blood Pressure 130/50 01/15/2024 2:59 PM CDT Pulse 63 01/15/2024 2:59 PM CDT Temperature - - Respiratory Rate 12 11/09/2019 3:12 PM CDT Oxygen Saturation 91% 01/15/2024 2:59 PM CDT Inhaled Oxygen Concentration - - Weight 77.3 kg (170 lb 6.4 oz) 01/15/2024 2:59 P M CDT Height 170.2 cm (5' 7 ) 01/15/2024 2:59 PM CDT Body Mass Index 26.69 01/15/2024 2:59 PM CDT Plan of Treatment Not on file Insurance A[employer]NA MEDICARE GOLD AETNA MEDICARE GOLD Care Teams Sales Ledger Administrator Relationship Specialty Start Date End Date Laura Bartlett MD PCP - General Family Practice 01/16/18
--- OUTSIDE RECORDS SUMMARY | 2024-06-01 10:32 | XMS_ITS | Encounter Summary ---
Author Organization [facility] Address [address] [address] Care Team Providers Care Commercial Loan Coordinator Name Role Phone Jorge Conner MD Primary Care Provider [phone]- [phone] Jorge Conner MD Primary Care Provider [phone]- [phone] Laura Bartlett MD Primary Care Provider Encounter Details Date Type Department Care Team (Latest Contact Info) Description 06/12/2016 Orders Only [facility] Cardiology ProviderBrittnee MD [address] [place] [id number] Social History Tobacco Use Types Packs/Day Years Used Date Smoking Tobacco: Former Comments:Smoking History Pac ks/day: 1 Packs Alcohol Use Standard Drinks/Week Comments No 0 (1 standard drink = 0.6 oz pur e alcohol) Sex and Gender Information Value Date Recorded Sex Assigned at Not on file 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 Historical Provider [facility] LYNN FUENTES Final Result documented in this encounter Visit Diagnoses Not on filedocumented in this encounter Care Teams Commercial Loan Coordinator Relationship Specialty Start Date End Date Jorge Conner MD [address] [place] [address] PCP - General 07/12/16 01/15/18 Jorge Conner MD [address] [place] [address] [address] PCP - General 02/03/13 07/11/16 Laura Bartlett MD [address] [place] [address] PCP - General Family Practice 01/16/18 documented as of this encounter
--- OUTSIDE RECORDS SUMMARY | 2024-06-01 10:32 | XMS_ITS | Clinical Summary ---
Author Organization [facility] Address [address] [place]: [place] [address] Care Team Providers Care Aviation Warfare Systems Operator Name Role Phone Unavailable Primary Care Provider Unavailabl e Allergies Active Allergy Reactions Criticality Noted Date Comments Aspirin Unknown 08/26/2021 Medications traMADoL (ULTRAM) 50 mg tablet Take 1 Tablet (50 mg) by mouth every 6 hours as needed. 20 Tablet 07/18/2022 4:05 PM CDT 3 Active hydroCHLOROthia zide 25 mg tablet Take 1 Tablet (25 mg) by mouth daily. 90 Tablet 3 04/02/2024 12:39 PM PIER WORKER 4 Active ferrous sulfate 325 mg (65 mg iron) Tablet, Delayed Release (E.C.) Take 1 Tablet (325 mg) by mouth 2 times daily. 180 Tablet 1 11/07/2023 11:33 AM CDT 4 Active ticagrelor (BRILINTA) 60 mg Tablet Take 1 Tablet (60 mg) by mouth 2 times daily. 180 Tablet 1 05/08/2024 1:11 PM PIER WORKER 4 Active azilsartan medoxomiL (Edarbi) 80 mg Tablet Take 1 Tablet (80 mg) by mouth daily. 90 Tablet 1 05/08/2024 1:11 PM PIER WORKER 4 Active fenofibrate (LOFIBRA) 54 mg Take 1 Tablet (54 mg) by mouth daily. 90 Tablet 1 01/03/2024 11:49 AM CDT 4 Active cloNIDine HCL (CATAPRES) 0.2 mg tablet Take 1 Tablet (0.2 mg) by mouth daily. 90 Tablet 1 04/02/2024 12:39 PM PIER WORKER 4 Active atorvastatin (LIPITOR) 40 mg tablet Take one tablet (40 mg) orally every day at bedtime 90 Tablet 1 04/02/2024 12:39 PM PIER WORKER 4 Active cholecalciferol , Vitamin D3, 50 mcg (2,000 unit) Tablet Take one tablet (50 mcg) orally daily 90 Tablet 3 04/02/2024 12:39 PM PIER WORKER 4 Active omeprazole (PriLOSEC) 20 mg Capsule, Delayed Release(E.C.) Take one tablet (20 mg) orally daily 90 Capsule 1 04/02/2024 12:39 PM PIER WORKER 4 Active albuterol sulfate HFA 90 mcg/actuation aerosol inhaler INHALE 2 PUFFS BY MOUTH EVERY 4 HOURS NEEDED FOR SHORTNESS OF BREATH OR WHEEZING. 8.5 Gram 5 Active Immunizations Immunization Administration Dates Next Due (COMIRNATY)(12 YR UP) COVID- 19 VACCINE, MRNA, SPIKE PROTEIN, LNP, MARIAH(PF) 30 MCG/0.3 ML IM SUSP 02/23/2024,02/18/2023 INFLUENZA VACCINE HIGH DOSE QUADRIVALENT 65 YR UP PF IM 02/18/2023,03/12/2022 INFLUENZA VACCINE HIGH DOSE TRIVALENT SPLIT VIRUS, (65 YR UP), 0.5ML (PF), IM 02/23/2024 Social History Tobacco Use Types Packs/Day Years Used Date Smoking Tobacco: Never Assessed Sex and Gender Information Value Date Recorded Sex Assigned at Not on file Legal Sex Male 3:27 PM CDT Gender Identity Not on file Sexual Orientation Not on file Plan of Treatment Health Maintenance Due Date Last Done Comments DTAP/TDAP/TD VACCINES (1 - Tdap) 12/17/1959 PNEUMOCOCCAL VACCINE 65+ YEA RS (1 of 1 - PCV) 1990 ZOSTER VACCINE (1 of 2) 1990 RSV VACCINE (60+ or ) (1 - 1-dose 75+ series) 12/17/2015 COVID-19 Vaccine Completed 02/23/2024, 02/18/2023 INFLUENZA VACCINE Completed 02/23/2024, , 03/12/2022 Insurance RX AETNA Medicare Part D RX BE PLANS (INTERNAL) [facility]
--- OUTSIDE RECORDS SUMMARY | 2024-06-01 10:32 | XMS_ITS | Clinical Summary ---
Author Organization [facility] D Address [address] [place] [id number] Care Team Providers Care Director Dance Name Role Phone Laura Bartlett MD Primary Care Provider Allergies Active Allergy Reactions Criticality Noted Date Comments Aspirin Hives,Rash Medium Medications atorvastatin (LIPITOR) 40 mg tablet TAKE ONE TABLET BY MOUTH ONCE DAILY AT BEDTIME 30 tablet 11 8 Active fenofibrate (TRICOR) 54 mg tablet [...] carotid arteries based on carotid duplex at [facility]. Continue risk factor modification including Brilinta, Lipitor and good blood pressure control. Follow up in 1 year with repeat carotid duplex. Hx of CABG 10/27/2018 Cardiac pacemaker 07/30/2018 Overview (07/30/2018): Biotronik Dual Pacemaker. Dx; High Grade AVB, Syncope. DOI 07/27/2018-João. Biotronik remote monitoring. Office pacemaker checks Q1 yr. Coronary artery disease invo lving [place] coronary artery of [place] heart without angina pectoris 01/13/2017 Assessment & [...] 01/05/2015 01/13/2017 Overview (07/19/2016): Post surgical visit Encounters Date Type Department Care Team Description 05/25/2024 8:45 AM BOILERMAKER MECHANIC Ancillary Procedure [facility] Cardiology [address] [place] [address] [place] [phone] Cardiac pacemaker; AV block 05/25/2024 Orders Only [facility] Cardiology [address] [place] [address] [place] [phone] Filippo Moyer MD Cardiac pacemaker (Primary Dx); History of syncope; AV heart block from Last 3 Months Surgical History Surgery Date Site/Laterality Comments RECTAL SURGERY Rectal Surgery CATARACT EXTRACTION Cataract extraction OTHER SURGICAL HISTORY CABG X 1 HERNIA REPAIR correction ANGIOPLASTY 04/14/1994 - 04/13/1995 CATARACT EXTRACTION see above CORONARY ARTERY BYPASS GRAFT 04/14/2014 - 04/13/2015 Medical History Medical History Date Comments Gastroesophageal reflux disease GERD Hypertension Hypertension Chronic coronary artery disease Coronary artery disease Alcohol abuse sober since 1981 Cataract surgical removal, right eye Heart disease Family History Medical History Relation Name Comments Coronary artery disease Father 2 Alexa nary Artery Bypass Graft; Relation Name Status Comments Father 1 Alive Father 2 Social History Tobacco Use Types Packs/Day Years [...] on file Legal Sex Male 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 MECHANIC Gender Identity Not on file Sexual Orientation Not on file Obstetrics History Last Filed Vital Signs Vital Sign Reading [...] 01/15/2024 2:59 PM CDT Plan of Treatment Health Maintenance Due Date Last Done Comments Depression Screening 1940 Fall Risk Assessment 1940 Hepatitis B Screening 1958 Abdominal Aortic Aneurysm (A AA) Screen 2005 Well Visit 65+ 2005 DTaP/Tdap/Td Vaccine (2 - Td or Tdap) 02/06/2025 02/06/2015, 05/31/2004 Pneumococcal vaccine 65+ Completed 016, 02/06/2015, 04/14/2006 Zoster Vaccine Completed 01/31/2018, 08/13, 02/02/2013 Influenza Vaccine Completed 02/23/2024, , 12/29/2017, Additional history exists Insurance [employer] MEDICARE GOLD AETNA MEDICARE GOLD Care Teams Director Dance Relationship Specialty Start Date End Date Laura Bartlett MD PCP - General Family Practice 01/16/18
--- OUTSIDE RECORDS SUMMARY | 2024-06-01 10:32 | XMS_ITS | Clinical Summary ---
Author Organization [facility] Address [address] [place] [address] Care Team Providers Care Director Of Application Development Name Role Phone Laura Bartlett MD Primary Care Provider Allergies Active Allergy Reactions Criticality Noted Date Comments Aspirin Hives 12/22/2020 Medications cloNIDine 0.2 MG tablet Take 0.2 mg by mouth daily. Active fenofibrate 54 MG tablet Take 54 mg by mouth daily with breakfast. Active vitamin D2, ergocalciferol, 51451 UNITS capsule Take 50,000 Units by mouth every 7 days. Active atorvastatin 40 MG tablet Take 40 mg by mouth nightly at bedtime. Active ticagrelor 90 mg tablet Take by mouth 2 (two) times daily. Active Azilsartan Medoxomil (EDARBI) 80 MG Tab Take by mouth daily. Active hydroCHLOROthia zide 25 MG tablet Take 25 mg by mouth every morning. Active omeprazole 40 MG capsule Take 40 mg by mouth daily. Active metFORMIN ER, MOD, (GLUMETZA) 500 MG TABLET SR 24 HR 24 hr tablet Take 500 mg by mouth daily. Active Vitamin D3 (CHOLECALCIFERO L) 50 mcg tablet Take 1 tablet (2,000 Units total) by mouth daily. 03/31/2023 Active ferrous sulfate EC 324 (65 Fe) MG tablet Take 1 tablet (324 mg total) by mouth 2 (two) times daily. 05/20/2023 Active Active Problems Problem Noted Date Diagnosed Date Bilateral carotid artery stenosis 08/06/2023 Peripheral vascular disease 06/28/2022 Hx of CABG 10/27/2018 Cardiac pacemaker 07/30/2018 Overview (05/20/2022): Biotronik Dual Pacemaker. Dx; High Grade AVB, Syncope. DOI 07/27/2018-João. Biotronik remote monitoring. Office pacemaker checks Q1 yr. Coronary artery disease invo lving [place] coronary artery of [place] heart without angina pectoris 01/13/2017 Overview (05/20/2022): Last Assessment & Plan: No symptoms of myocardial ischemia. He is allergic to aspirin, so he is on Brilinta. Essential hypertension 01/13/2017 Overview (05/20/2022): Last Assessment & Plan: Blood pressure is adequately controlled on current regimen. No change was made. Mixed hyperlipidemia 01/13/2017 Overview (05/20/2022): Last Assessment & Plan: On chronic lipid lowering therapy with good control. No changes made. Immunizations Name Administration Dates Next Due Fluad influenza vaccine, Isrrael drivalent (aIIV4), Inactivated, adjuvanted, preservative free, 0.5 mL,IM use 02/08/2019,12/29/2017 Pneumococcal (Prevnar 13) 02/06/2015 Shingrix 01/31/2018,09/01/2017 Zoster (Zostavax) 02528 Unt/0.65Ml 02/02/2013 Family History Medical History Relation Comments cardiovascular disease Father Alzheimers Mother cardiovascular disease Mother Relation Status Comments Father Mother Social History Tobacco Use Types Packs/Day Years Used Date Smoking Tobacco: Every Day Cigarettes 1 55 Passive Smoke Exposure: Never Alcohol Use Standard Drinks/Week Comments Not Currently 0 (1 standard drink = 0.6 oz pur e alcohol) stopped drinking [id number] Sex and Gender Information Value Date Recorded Sex Assigned at Not on file Legal Sex Male 2:23 PM CDT Gender Identity Not on file Sexual Orientation Not on file Last Filed Vital Signs Vital Sign Reading Time Taken Comments Blood Pressure 140/60 08/06/2023 10:28 AM CDT Pulse 84 08/06/2023 10:28 AM CDT Temperature 36.7 C (98 F) 12/22/2020 9:56 AM CDT Respiratory Rate 26 12/22/2020 9:00 PM CDT Oxygen Saturation 98% 06/26/2022 3:38 PM CDT Inhaled Oxygen Concentration - - Weight 78 kg (172 lb) 08/06/2023 10:28 AM CDT Height 170.2 cm (5' 7 ) 08/06/2023 10:28 AM CDT Body Mass Index 26.94 08/06/2023 10:28 AM CDT Plan of Treatment Upcoming Encounters Date Type Department Care Team (Late st Contact Info) Description 07/16/2024 12:30 PM CDT Appointment [facility] [address] [place], [place] [phone] Gio Smith MD [address] [address] 07/16/2024 2:00 PM CDT Appointment [facility] [address] [place] [address] Gio Smith MD [address] [id number] 07/21/2024 10:00 AM CDT [facility] [address] [place] [phone] Gio Smith MD [facility]. [address] [id number] Health Maintenance Due Date Last Done Comments ASCVD LDL 1940 ASCVD Statin 1940 DTaP, Tdap and Td Vaccines ( 1 - Tdap) 12/17/1959 Annual Medicare Wellness Visit 2005 Pneumococcal Vaccine: 65+ Years (2 of 2 - PPSV23 or PCV20) 04/03/2015 02/06/2015 RSV Immunization or 60+ Years (1 - 1-dose 75+ series) 12/17/2015 COVID-19 Vaccine (4 - 2023-2 5 season) 2023 02/18/2023, 06/13/2020, 05/11/2020 Influenza Adult (#1) 2024 02/08/2019, 12/29/2017 Zoster Vaccines Completed 01/31/2018, 09/01/2017, 02/02/2013 Meningococcal B Vaccine Aged Out No l onger eligible based on patient's age to complete this topic Meningococcal Vaccine Aged Out No lakisha nathaly eligible based on patient's age to complete this topic RSV Immunizations Under 20 Months Aged Out No longer eligible b ased on patient's age to complete this topic Insurance AETNA Advance Directives * Full Code (Latest Code Status on File) Date Activated Date Inactivated Comments 12/22/2020 12:43 PM 12/22/2020 11:41 PM Care Teams Director Of Application Development Relationship Specialty Start Date End Date Laura Bartlett MD [address] [place] [address] PCP - General FAMILY PRACTICE 12/22/20
--- OUTSIDE RECORDS SUMMARY | 2024-06-01 10:32 | XMS_ITS | Continuity of Care Document ---
Author Organization [facility] Address [address] [place] [address] [address] [place] [address] Phone Care Team Providers Care Prune Washer Name Role Phone Eleonora Benton Unavailable Unavailable Procedures Procedure Date Eye Exam & Treatment Refraction Eye Exam & Treatment Refraction Advance Directives Directive Yes / No Effective Date File Name No Information Encounters Encounter Description Practice Location Reason(s) For Visit Diagnoses Date Provider Providers Copied on Encounter [facility], [address] [place] [address] [address], [place], [place], [id number], tel:[phone] [facility] No Information 9-[address] 0 Serenity Crews. [address] [facility] , [address], [place], [place], [facility], . tel:[phone] [facility], [address] [place] [address] [address], [place], [place], [id number], tel:[phone] [facility] No Information 3-200 9 Serenity Baugh [address] , [address], [place], [place], [facility], [place]. tel:[phone] Family History Family Member Type Diagnosis Age At Onset No Information Payers Payer name Insurance type Covered republican ID Authoriza timelissa(s) [employer] Vision Plan CI [id number] Social History Type Description Quantity Date Captured [...]
[2024-06-01 16:35] LABS: Basophils Percent Auto 0.3 % (0.2-1.2); Eosinophils Absolute Auto 0.1 K/mm3 (0-0.3); Eosinophils Percent Auto 0.8 % (0-4.4); Hematocrit 37.6 % (42.0-52.0); Immature Granulocyte Absolute 0.01 K/mm3 (0.00-0.031); Immature Granulocyte Percent A 0.1 % (0-0.5); Lymphocytes Absolute Auto 0.86 K/mm3 (0.9-3.2); Lymphocytes Percent Auto 12.2 % (18.3-44.2); Mean Corpuscular HGB Conc 29.3 g/dl (32-36); Mean Corpuscular Hemoglobin 26.1 pg (26-34); Mean Corpuscular Volume 89.3 fl (80-100); Mean Platelet Volume 11.2 fl (7.4-10.4); Monocytes Absolute Auto 0.7 K/mm3 (0.1-0.6); Monocytes Percent Auto 9.6 % (2.6-8.5); Neutrophils Absolute Auto 5.4 K/mm3 (1.3-6.7); Platelet Count Result 182 k/mm3 (150-375); Red Blood Count 4.21 M/mm3 (4.6-6.20); Red Cell Distribution Width 13.6 % (11.5-14.5); White Blood Count 7.1 K/mm3 (4.5-10.0)
[2024-06-01 16:50] LABS: Alanine Aminotransferase 15 U/L (6-50); Albumin Level 4.3 g/dL (3.5-5.1); Alkaline Phosphatase 37 U/L (38-126); Anion Gap 8 mmol/L (4-12); Aspartate Amino Transferase 37 U/L (17-59); Bilirubin,Total 0.5 mg/dL (0.2-1.3); Blood Urea Nitrogen 51 mg/dL (9-20); Calcium 9.6 mg/dL (8.4-10.2); Carbon Dioxide 32 mmol/L (22-30); Chloride 105 mmol/L (98-107); Estimated Glomerular Filt Rate 39; Glucose 72 mg/dL (65-110); Potassium 4.7 mmol/L (3.4-5.0); Sodium 145 mmol/L (137-145)
[2024-06-01 16:54] LABS: Platelet Estimate Adequate (Adequate); Schistocytes None Seen
[2024-06-01 17:01] LABS: Hemoglobin A1C 6.3 % (<5.7)
== END 2024-06-01 10:22 | disposition home or self-care (01) ==
LOC: ANHGOSHLAB 10:22
PROVIDERS: PCP Family Medicine; Visit Provider Family Medicine
DX: D64.9 Anemia, unspecified (principal); I10 Essential (primary) hypertension; R73.03 Prediabetes
CPT/HCPCS: 36415; 80053; 83036; 85025

== ENCOUNTER 2024-06-25 10:33 | Outpatient (CLI) | payer MEDICARE, SELFPAY ==
--- OUTSIDE RECORDS SUMMARY | 2024-06-25 11:18 | XMS_ITS | Continuity of Care Document ---
Author Organization [facility] Address [address] [place] [address] [address] [place] [address] Phone Care Team Providers Care Poison Information Specialist Name Role Phone Eleonora Benton Unavailable Unavailable Procedures Procedure Date Eye Exam & Treatment Refraction Eye Exam & Treatment Refraction Advance Directives Directive Yes / No Effective Date File Name No Information Encounters Encounter Description Practice Location Reason(s) For Visit Diagnoses Date Provider Providers Copied on Encounter [facility], [address] [place] [address] [address], [place], [place], [id number], tel:[phone] [facility] No Information 9-[address] 0 Serenity Crews. [address] [facility] , [address], [place], [place], [facility], . tel:[phone] [facility], [address] [place] [address] [address], [place], [place], [id number], tel:[phone] [facility] No Information 3-200 9 Serenity Baugh [address] , [address], [place], [place], [facility], [place]. tel:[phone] Family History Family Member Type Diagnosis Age At Onset No Information Payers Payer name Insurance type Covered green party ID Authoriza timelissa(s) [employer] Vision Plan CI [id number] Social History Type Description Quantity Date Captured [...]
--- OUTSIDE RECORDS SUMMARY | 2024-06-25 11:18 | XMS_ITS | Referral Summary ---
Author Organization [facility] Address [address] [place] [address] Care Team Providers Care Edger Automatic Name Role Phone Laura Bartlett MD Primary Care Provider Encounters Date Type Department Care Team Description 05/25/2024 Orders Only [facility] [address] [place] [phone] Filippo Moyer MD Cardiac pacemaker (Primary Dx); History of syncope; AV heart block 05/25/2024 8:45 AM SPECIAL EDUCATION CURRICULUM SPECIALIST Ancillary Procedure [facility] [address] [place] [phone] History of syncope (Primary Dx); Cardiac pacemaker; AV block from Last 3 [...] carotid arteries based on carotid duplex at [facility]. Continue risk factor modification including Brilinta, Lipitor and good blood pressure control. Follow up in 1 year with repeat carotid duplex. Hx of CABG 10/27/2018 Cardiac pacemaker 07/30/2018 Overview (07/30/2018): Biotronik Dual Pacemaker. Dx; High Grade AVB, Syncope. DOI 07/27/2018-João. Biotronik remote monitoring. Office pacemaker checks Q1 yr. Coronary artery disease invo lving [place] coronary artery of [place] heart without angina pectoris 01/13/2017 Assessment & [...] on file Legal Sex Male 11:43 AM SPECIAL EDUCATION CURRICULUM SPECIALIST Gender Identity Not on file Sexual Orientation [...] CDT Plan of Treatment Not on file Procedures Procedure Name Priority Date/Time Associated Diagnosis Comments DEVICE CHECK - REMOTE Routine 05/25/2024 8:25 AM SPECIAL EDUCATION CURRICULUM SPECIALIST Cardiac pacemaker AV block from Last 3 Months Results * DEVICE CHECK - REMOTE (05/25/2024 8:25 AM SPECIAL EDUCATION CURRICULUM SPECIALIST) Anatomical Region Laterality Modality Other Narrative 06/15/2024 10:30 AM SPECIAL EDUCATION CURRICULUM SPECIALIST Biotronik Dual Pacemaker. Dx; High Grade AVB, Syncope. DOI 07/27/2018-João. Biotronik remote monitoring. Office pacemaker checks Q1 yr. Routine DDD Pacemaker Remote. Transmission attached. Battery status: OK, 55% remaining battery life to URIAH. Stable lead impedances, pacing and sensing thresholds. Presenting rhythm: A sensed/V sensed AP-20%, POKER ROOM MANAGER-45% No AT/AF episodes noted. No Ventricular high rate episodes detected. Medications: Brilinta 60 mg, Edarbi 80 mg, See scanned report. Office pacemaker follow up: 05/25/25 Biotronik remote f/u 08/24/24. Cayden Bermeo RN Filippo Moyer MD [facility] C[facility] SERVICES PROC EDURES Final Result from Last 3 Months Insurance TNA MEDICARE GOLD AETNA MEDICARE GOLD Care Teams Edger Automatic Relationship Specialty Start Date End Date Laura Bartlett MD PCP - General Family Practice 01/16/18
--- OUTSIDE RECORDS SUMMARY | 2024-06-25 11:18 | XMS_ITS | Clinical Summary ---
Author Organization [employer] [facility] Address [address] [place]: Gino [place] [address] Care Team Providers Care Physical Fitness Teacher Name Role Phone Unavailable Primary Care Provider [...] daily. 90 Tablet 3 04/02/2024 12:39 PM BIOLOGICAL SCIENCE AIDE 4 Active ferrous sulfate 325 mg (65 mg iron) Tablet, Delayed Release (E.C.) Take 1 Tablet (325 mg) by mouth 2 times daily. 180 Tablet 1 11/07/2023 11:33 AM CDT 4 Active ticagrelor (BRILINTA) 60 mg Tablet Take 1 Tablet (60 mg) by mouth 2 times daily. 180 Tablet 1 06/03/2024 1:03 PM BIOLOGICAL SCIENCE AIDE 4 Active azilsartan medoxomiL (Edarbi) 80 mg Tablet Take 1 Tablet (80 mg) by mouth daily. 90 Tablet 1 06/03/2024 1:03 PM BIOLOGICAL SCIENCE AIDE 4 Active fenofibrate (LOFIBRA) 54 mg Take 1 Tablet (54 mg) by mouth daily. 90 Tablet 1 06/03/2024 1:03 PM BIOLOGICAL SCIENCE AIDE 4 Active cloNIDine HCL (CATAPRES) 0.2 mg tablet Take 1 Tablet (0.2 mg) by mouth daily. 90 Tablet 1 04/02/2024 12:39 PM BIOLOGICAL SCIENCE AIDE 4 Active atorvastatin (LIPITOR) 40 mg tablet Take one tablet (40 mg) orally every day at bedtime 90 Tablet 1 04/02/2024 12:39 PM BIOLOGICAL SCIENCE AIDE 4 Active cholecalciferol , Vitamin D3, 50 mcg (2,000 unit) Tablet Take one tablet (50 mcg) orally daily 90 Tablet 3 04/02/2024 12:39 PM BIOLOGICAL SCIENCE AIDE 4 Active omeprazole (PriLOSEC) 20 mg Capsule, Delayed Release(E.C.) Take one tablet (20 mg) orally daily 90 Capsule 1 04/02/2024 12:39 PM BIOLOGICAL SCIENCE AIDE 4 Active albuterol sulfate HFA 90 mcg/actuation aerosol inhaler INHALE 2 PUFFS BY MOUTH EVERY 4 HOURS NEEDED FOR SHORTNESS OF BREATH OR WHEEZING. 8.5 Gram 06/03/2024 1:04 PM BIOLOGICAL SCIENCE AIDE 5 Active ferrous sulfate 325 mg (65 mg iron) Tablet, Delayed Release (E.C.) Take 1 Tablet (325 mg) by mouth 2 times daily. 180 Tablet 1 06/03/2024 1:03 PM BIOLOGICAL SCIENCE AIDE 5 Active Immunizations Immunization Administration Dates Next [...] VACCINES (1 - Tdap) 12/17/1959 PNEUMOCOCCAL VACCINE 50+ YEA RS (1 of 1 - PCV) 1990 ZOSTER VACCINE (1 of 2) 1990 RSV VACCINE (60+ or ) (1 - 1-dose 75+ series) 12/17/2015 COVID-19 Vaccine (3 - season) 08/22/202402/2024, 02/18/2023 INFLUENZA VACCINE Completed 02/23/2024, , 03/12/2022 Insurance RX AETNA Medicare Part D RX BE PLANS (INTERNAL) [facility]
--- OUTSIDE RECORDS SUMMARY | 2024-06-25 11:18 | XMS_ITS | Clinical Summary ---
[facility] Organization [facility] Address [address] [place] [address] Care Team Providers Care Plater Production Name Role Phone Laura Bartlett MD Primary [...] carotid arteries based on carotid duplex at [facility]. Continue risk factor modification including Brilinta, Lipitor and good blood pressure control. Follow up in 1 year with repeat carotid duplex. Hx of CABG 10/27/2018 Cardiac pacemaker 07/30/2018 Overview (07/30/2018): Biotronik Dual Pacemaker. Dx; High Grade AVB, Syncope. DOI 07/27/2018-João. Biotronik remote monitoring. Office pacemaker checks Q1 yr. Coronary artery disease invo lving [place] coronary artery of [place] heart without angina pectoris 01/13/2017 Assessment & [...] Department Care Team Description 05/25/2024 8:45 AM VETERINARY PRACTITIONER Ancillary Procedure [facility] Cardiology [address] [place] [phone] History of syncope (Primary Dx); Cardiac pacemaker; AV block 05/25/2024 Orders Only [facility] Cardiology [address] [place] [phone] Filippo Moyer MD Cardiac pacemaker (Primary Dx); [...] on file Legal Sex Male 11:43 AM VETERINARY PRACTITIONER Gender Identity Not on file Sexual Orientation [...] Completed 02/23/2024, , 12/29/2017, Additional history exists Procedures Procedure Name Priority Date/Time Associated Diagnosis Comments DEVICE CHECK - REMOTE Routine 05/25/2024 8:25 AM VETERINARY PRACTITIONER Cardiac pacemaker AV block from Last 3 Months Results * DEVICE CHECK - REMOTE (05/25/2024 8:25 AM VETERINARY PRACTITIONER) Anatomical Region Laterality Modality Other Narrative 06/15/2024 10:30 AM VETERINARY PRACTITIONER Biotronik Dual Pacemaker. Dx; High Grade AVB, Syncope. DOI 07/27/2018-João. Biotronik remote monitoring. Office pacemaker checks Q1 yr. Routine DDD Pacemaker Remote. Transmission attached. Battery status: OK, 55% remaining battery life to URIAH. Stable lead impedances, pacing and sensing thresholds. Presenting rhythm: A sensed/V sensed AP-20%, SHOVEL LOG LOADER OPERATOR-45% No AT/AF episodes noted. No Ventricular high rate episodes detected. Medications: Brilinta 60 mg, Edarbi 80 mg, See scanned report. Office pacemaker follow up: 05/25/25 Biotronik remote f/u 08/24/24. Cayden Bermeo, [place] Filippo Moyer MD CV CARDIAC SERVICES PROC EDURES Final Result from Last 3 Months Insurance T MEDICARE [facility] AETNA MEDICARE GOLD Care Teams Plater Production Relationship Specialty Start Date End Date Laura Bartlett MD PCP - General Family Practice 01/16/18
--- OUTSIDE RECORDS SUMMARY | 2024-06-25 11:18 | XMS_ITS | Clinical Summary ---
Author Organization [facility] Address [address] [place] [address] Care Team Providers Care Stoker Mechanic Name Role Phone Laura Bartlett MD Primary Care Provider Allergies Active Allergy Reactions Criticality Noted Date Comments Aspirin Hives 12/22/2020 Medications cloNIDine 0.2 MG tablet Take 0.2 mg by mouth daily. Active fenofibrate 54 MG tablet Take 54 mg by mouth daily with breakfast. Active vitamin D2, ergocalciferol, 45904 UNITS capsule Take 50,000 Units by mouth [...] Q1 yr. Coronary artery disease invo lving [place] coronary artery of [place] heart without angina pectoris 01/13/2017 Overview (05/20/2022): [...] (Prevnar 13) 02/06/2015 Shingrix 01/31/2018,09/01/2017 Zoster (Zostavax) 22154 Unt/0.65Ml 02/02/2013 Family History Medical History Relation Comments cardiovascular disease Father Alzheimers Mother cardiovascular disease Mother Relation Status Comments Father Mother Social History Tobacco Use Types Packs/Day Years Used Date Smoking Tobacco: Every Day Cigarettes 1 55 Passive Smoke Exposure: Never Alcohol Use Standard Drinks/Week Comments Not Currently 0 (1 standard drink = 0.6 oz pur e alcohol) stopped drinking [id number] Sex and Gender Information Value Date Recorded [...] Info) Description 07/16/2024 12:30 PM CDT Appointment [facility] [address] [place], [place] [phone] Gio Smith MD [address] [address] 07/16/2024 2:00 PM CDT Appointment [facility] [address] [place] [address] Gio Smith MD [address] [address] 07/21/2024 10:00 AM CDT [facility] [address] [place] [phone] Gio Smith MD [facility]. [address] [phone] Health Maintenance Due Date Last Done Comments [...] 12:43 PM 12/22/2020 11:41 PM Care Teams Stoker Mechanic Relationship Specialty Start Date End Date Laura Bartlett MD [address] [place] [address] PCP - General FAMILY PRACTICE 12/22/20
--- OUTSIDE RECORDS SUMMARY | 2024-06-25 11:18 | XMS_ITS | Encounter Summary ---
Author Organization [facility] Address [address] [address] Care Team Providers Care Supervisor Rose Grading Name Role Phone Jorge Conner MD Primary Care Provider [phone] Jorge Conner MD Primary Care Provider [phone] Laura Bartlett MD Primary Care Provider Encounter Details Date Type Department Care Team (Latest Contact Info) Description 06/12/2016 Orders Only [facility] Cardiology ProviderBrittnee MD [address] [place] [phone] Social History Tobacco Use Types Packs/Day Years Used Date Smoking Tobacco: Former Comments:Smoking History Pac ks/day: 1 Packs Alcohol Use Standard Drinks/Week Comments No 0 (1 standard drink = 0.6 oz pur e alcohol) Sex and Gender Information Value Date Recorded Sex Assigned at Not on file Legal Sex Male 11:43 AM PARTS SALESMAN Gender Identity Not on file Sexual Orientation [...] on filedocumented in this encounter Care Teams Supervisor Rose Grading Relationship Specialty Start Date End Date Jorge Conner MD [address] [place] [address] PCP - General 07/12/16 01/15/18 Jorge Conner MD [address] [place] [address] [address] PCP - General 02/03/13 07/11/16 Laura Bartlett MD [address] [place] [address] PCP - General Family Practice 01/16/18 documented as of this encounter
--- NOTE | 2024-06-25 11:27 | PCRCNOTE ---
PT UNABLE TO PERFORM PLETHYSMOGRAPHY TESTING DESPITE MULTIPLE ATTEMPTS AND GOOD COACHING
--- NOTE | 2024-06-25 11:57 | WPDPFTINT ---
PFT Procedure Performed PFT Procedure Performed Spirometry with Pre/Post Bronchodilator Diffusing Cap (DLCO) Flow Vol Loop PFT Interpretation Lung volumes were not measured due to patient's inability to produce acceptable and measurements. Spirometry showed diminished expiratory flow rates and a diminished FEV1 to FVC ratio 48%, consistent with obstructive airway disease. Following administration of a bronchodilator there was significant increase in expiratory flow rates. Lung diffusion capacity is moderately reduced at 54% predicted. This diminished lung diffusion capacity coupled with a low alveolar volume and a normal DLCO/VA ratio indicates loss of alveolar capillary structure with loss of lung volume as seen in emphysema or interstitial lung disease. The flow-volume loop is consistent with obstructive airway disease. Impression: Severe obstructive airway disease with significant response to bronchodilators on this testing. Moderate reduction in lung diffusion capacity.
== END 2024-06-25 10:34 | disposition home or self-care (01) ==
PROVIDERS: PCP Family Medicine; Visit Provider Family Medicine
DX: J44.9 Chronic obstructive pulmonary disease, unspecified (principal)
CPT/HCPCS: 94060; 94729

== ENCOUNTER 2024-11-20 15:29 | Emergency (ER) | payer OTHER, MEDICARE, SELFPAY ==
--- NOTE | 2024-11-20 15:32 | ED_ITS ---
HPI - Wound/Laceration General Chief Complaint: Wound/Laceration Stated Complaint: lt finger laceration Time Seen by Provider: 11/20/24 15:32 Patient presents to [facility] accompanied by son with complaints of laceration that will not stop bleeding to left ring finger that happened around 12 30 today. Patient reports he was at the grocery store picking something off the shelf and accidentally cut himself on 1 of the metal shelving. Patient noted he is unsure of when his tetanus vaccination was given last but he sees a physician at this facility. Denies numbness or tingling in hands or fingers. Related Data Home Medications ?Medication ?Instructions ?Recorded ?Confirmed ?Last Taken ?Type clonidine HCl 0.2 mg tablet 0.2 mg PO DAILY 10/12/19 06/01/24 07/18/22 History hydrochlorothiazide 25 mg tablet 25 mg PO DAILY 10/12/19 06/01/24 07/17/22 History azilsartan medoxomil 80 mg tablet 80 mg PO DAILY 11/29/19 06/01/24 07/17/22 History (Edarbi) ticagrelor 60 mg tablet (Brilinta) 60 mg PO BID 11/13/22 06/01/24 07/10/23 History Allergies Allergy/AdvReac Type Severity Reaction Status Date / Time aspirin Allergy Intermediate Hives Verified 11/20/24 15:40 Review of Systems Constitutional: Constitutional: Reports as per HPI, Denies chills, Denies fatigue, Denies fever(s) and Denies weakness Eyes: Eyes: Reports no additional eye complaints ENT: Reports system reviewed and no additional complaints, except as documented Cardiovascular: Cardiovascular: Reports no additional cardiovascular complaints Respiratory: Respiratory: Reports no additional respiratory complaints Gastrointestinal: Gastrointestinal: Reports no additional gastrointestinal complaints Genitourinary: Genitourinary: Reports no additional male genitourinary complaints Musculoskeletal: Musculoskeletal: Reports as per HPI, Denies arthralgias, Denies joint swelling and Denies muscle cramps Integumentary/Breasts: Skin/Breast: Reports as per HPI, Denies pruritus, Denies erythema, Denies rash and Denies skin ulcer Comments: Laceration left ring finger Neurologic: Reports as per HPI, Denies numbness and Denies weakness Psychiatric: Psychiatric: Reports no additional psychiatric complaints Endocrine: Endocrine: Reports no additional endocrine complaints Hematologic/Lymphatic: Hematologic/Lymphatic: Reports no additional hematologic/lymphatic complaints Allergic/Immunologic: Allergic/Immunologic: Reports no additional allergic/i mmunologic complaints 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 Chronic venous insufficiency of lower extremity Vitamin D deficiency Type 2 diabetes mellitus without complications CKD (chronic kidney disease) stage 3, GFR 30-59 ml/min Ventral hernia Bradycardia Dyslipidemia GERD without esophagitis CAD in [place] artery Essential (primary) hypertension Surgical History Surgical History History of transurethral resection of bladder tumor (TURBT) (~07/2022) History of angioplasty of peripheral vessel 12/2020: left common femoral artery and left superficial femoral artery angioplasty History of ventral hernia repair 07/2016 History of coronary artery bypass graft (~11/2014) 11/2014 [place] teeth extracted (~1960) Hx of tonsillectomy (~1947) History of rectal surgery (~2009) 2009 and 2010 - repair of rectal tear History of hernia repair (~07/19/16) Hx of cardiac pacemaker 07/2018 Family History Family History Father Family history of cardiovascular disease Mother Family history of Alzheimer's disease Family history of cardiovascular disease Sibling Family history of lung cancer Family history of cardiovascular disease Other Cerebrovascular accident Hypertension Social History Social History Smoking packs per day: 0.3 Smoking cigarettes per day: 6.0 Years smoked: 55 Smoking pack-years: 16.50 Smoking status: Current every day smoker Tobacco type: cigarettes Second hand tobacco smoke exposure: Yes Smoking end date: 10/23/22 Alcohol intake: former Alcohol use details: RECOVERING ALCOHOLIC QUIT 1981 Substance use: former Substance use type: does not use Lack of Transportation: No Lack of Food: Never True Current Housing: I Have Housing Concerned About Future Housing: No Difficulty Paying Gas/Electric Bills: No Difficulty Paying for Meds: No Currently Unemployed: No Education: Master's Degree or Higher Difficulty w/ Childcare or Family Care: No Living arrangements: with family Additional living arrangements comments: Occupation/Education: retired Gender identity (if verbalized by the patient): Male Sexual Orientation (if Verbalized by the Patient): Straight or Heterosexual Spiritual care concerns: No Exam Const: General: healthy appearing and no acute distress Nutritional Appearance: well nourished Orientation/consciousness: patient oriented x3 Limitations: no limitations Resp: Effort & Inspection: normal respiratory effort Auscultation: clear to auscultation bilaterally Cardio: Rate: regular rate Skin: General skin exam: normal color Rashes: no rashes Wounds: wounds noted Other: Deep avulsion to distal end left ring finger- 3cm x 1cm Neuro: General: patient oriented x3 and moves all extremities Cranial nerves: Yes Nystagmus not present Speech: normal speech Gait exam (Neuro): Normal gait present Extrem: Left upper extremity: hand (avulsion- ) abnormal to inspection, normal capillary refill, neurosensory exam normal and tendon exam normal; no swelling Psych: Mental Status: mental status grossly normal Affect: normal affect Attitude: cooperative Course Course Level of Care: Express Care Visit Procedures Laceration Laceration 1: Date: 11/20/24 Time: 15:54 Site: hand Side (If applicable): left Size (cm): 3 Description: flap and irregular Depth: simple, single layer Pre-repair: wound explored and irrigated ====== Skin Level ====== Skin layer closed with: other (surgicel ) ====== Subcutaneous Layer ====== ====== Muscle Layer ====== ====== Tendon Layer ====== Dressing: pressure with 4x4 and coban MDM - Wound/Laceration MDM Narrative Medical decision making narrative: wound closed using Surgicel and pressure dressing Discharge instructions reviewed with patient, as well as provided in writing per nursing staff. The instructions also include specific and strict return/GO TO THE ER as well as f/u information. All questions have been answered, and the patient deny any further questions with discharge and discharge plan. Differential Diagnosis Differential diagnosis: Likely laceration, abrasion and avulsion of skin Medical Records Attestation: I reviewed the patient's medical records. Discharge Plan Discharge Clinical Impression: Open wound of left ring finger Patient Disposition: Home Condition: Stable Instructions: Antibiotic Form, Laceration (ED), Acute Wounds (DC) Additional Instructions: we have got your wound to stop bleeding using Surgicel which is a type of bandage that clots the wound. Leave this on for 36 hours. Soak in warm water to remove this bandage until it comes off easily. Do not pull or this can cause more bleeding after removing this bandage used gentle wound care daily with warm water and gentle soap. do not use alcohol or peroxide then may apply Vaseline or Aquaphor to the area and cover with a bandage watch for signs and symptoms of infection including redness, colored drainage, increased pain, or swelling to the area. Follow-up with primary care in 1 week if symptoms not improving return to the urgent care more urgency room if you remove this bandage and bleeding continues. We have also updated your tetanus vaccine today. Patient Language: Citizen Of [place] Prescriptions: No Action clonidine HCl 0.2 mg tablet 0.2 mg PO DAILY hydrochlorothiazide 25 mg tablet 25 mg PO DAILY Brilinta 60 mg tablet 60 mg PO BID Edarbi 80 mg tablet 80 mg PO DAILY albuterol sulfate 90 mcg/actuation HFA aerosol inhaler 2 puff inhalation Q4H PRN (Reason: shortness of breath or wheezing) Qty: 8.5 0RF cholecalciferol (vitamin D3) 50 mcg (2,000 unit) tablet 50 mcg PO DAILY Qty: 90 3RF ferrous sulfate 325 mg (65 mg iron) tablet,delayed release (DR/EC) 325 mg PO BID Qty: 180 1RF fenofibrate 54 mg tablet 54 mg PO DAILY Qty: 90 1RF atorvastatin 40 mg tablet 40 mg PO QHS Qty: 90 1RF omeprazole 20 mg capsule,delayed release(DR/EC) 20 mg PO DAILY Qty: 90 1RF Follow-up/Referrals: Amanda Bartlett MD [Primary Care Provider] - Time of Disposition: 15:59
[2024-11-20 15:35] VITALS: BP 125/52; PULSE 83; RESP 20; TEMP 36.8; O2SAT 96
[2024-11-20] MEDS: CELLULOSE OXIDIZED 2 x 14 INCH 1 PKT XX (15:45)
[2024-11-20] MEDS: TETANUS,DIPHTHERIA,AC PERTUSSIS ADULT (0.5 ML) BOOSTRIX IM (16:00)
== END 2024-11-20 16:06 | disposition home or self-care (01) ==
PROVIDERS: Emergency Provider Nurse Practitioner Family; PCP Family Medicine
DX: S61.205A Unspecified open wound of left ring finger without damage to nail, initial encounter (principal); W45.8XXA Other foreign body or object entering through skin, initial encounter; Z23 Encounter for immunization; Z87.891 Personal history of nicotine dependence; I12.9 Hypertensive chronic kidney disease with stage 1 through stage 4 chronic kidney disease, or unspecified chronic kidney disease; E11.22 Type 2 diabetes mellitus with diabetic chronic kidney disease; N18.30 Chronic kidney disease, stage 3 unspecified; I25.10 Atherosclerotic heart disease of native coronary artery without angina pectoris; K21.9 Gastro-esophageal reflux disease without esophagitis; E78.5 Hyperlipidemia, unspecified; E55.9 Vitamin D deficiency, unspecified; I87.2 Venous insufficiency (chronic) (peripheral); Z85.51 Personal history of malignant neoplasm of bladder; Z95.0 Presence of cardiac pacemaker; Z95.1 Presence of aortocoronary bypass graft; Z98.62 Peripheral vascular angioplasty status
CPT/HCPCS: 90471; 90715; 99212; G0463

== ENCOUNTER 2024-12-08 09:42 | Outpatient (CLI) | payer MEDICARE, SELFPAY ==
--- OUTSIDE RECORDS SUMMARY | 2024-12-08 09:58 | XMS_ITS | Encounter Summary ---
Author Organization [facility] Healthcare Address [address] [place] [address] Care Team Providers Care Multimedia Assistant Name Role Phone Laura Bartlett MD Primary Care Provider Encounter Details Date Type Department Care Team (Late st Contact Info) Description 06/01/2024 Orders Only [facility] Health Information Management [address] [place] [id number] Scanning, Provider Social History Tobacco Use Types Packs/Day Years Used Date Smoking Tobacco: Light Smoker Smokeless Tobacco: Never Comments:Smoking History Pac ks/day: 1 Packs Alcohol Use Standard Drinks/Week Comments No 0 (1 standard drink = 0.6 oz pur e alcohol) Sex and Gender Information Value Date Recorded Sex Assigned at Not on file 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
--- OUTSIDE RECORDS SUMMARY | 2024-12-08 09:58 | XMS_ITS | Clinical Summary ---
Author Organization [facility] Address [address] [place] [id number] Care Team Providers Care Cnc Maintenance Technician Name Role Phone Laura Bartlett MD Primary [...] omeprazole (PriLOSEC) 20 mg capsule 2 Active Brilinta 60 mg tablet Take 1 Tablet (60 mg) by mouth 2 times daily. 180 tablet 1 5 Active Edarbi 80 mg Take 1 Tablet (80 mg) by mouth daily. 90 tablet 1 5 Active hydroCHLOROthia zide (HYDRODIURIL) 25 mg tablet Take 1 Tablet (25 mg) by mouth daily. 90 tablet 3 5 Active cloNIDine (CATAPRES) 0.2 mg tablet Take 1 Tablet (0.2 mg) by mouth daily. 90 tablet 1 5 Active Active Problems Problem Noted Date Diagnosed Date Bilateral carotid artery stenosis 12/18/2023 Assessment & Plan (12/18/2023 10:44 AM CDT): Moderate 50-69% stenosis of bilateral internal carotid arteries based on carotid duplex at [facility]. Continue risk factor modification including Brilinta, Lipitor and good blood pressure control. Follow up in 1 year with repeat carotid duplex. Hx of CABG 10/27/2018 Cardiac pacemaker 07/30/2018 Overview (07/30/2018): Biotronik Dual Pacemaker. Dx; High Grade AVB, Syncope. DOI 07/27/2018-oJão. Biotronik remote monitoring. Office pacemaker checks Q1 yr. Coronary artery disease invo lving [place] coronary artery of [place] heart without angina pectoris 01/13/2017 Assessment & [...] Encounters Date Type Department Care Team Description 11/30/2024 7:45 AM CDT Ancillary Procedure [facility] Cardiology [address] [facility] [address] [place] [phone] Cardiac pacemaker; AV block 09/07/2024 11:15 AM CDT Office Visit [facility] Cardiology at [address] [place] [address] Filippo Moyer MD Hx of CABG (Primary Dx); Cardiac pacemaker; Coronary artery disease involving [place] coronary artery of [place] heart without angina pectoris from Last 3 Months Surgical History Surgery [...] on file 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 Gender Identity Not on file Sexual Orientation Not on file Obstetrics History Last Filed Vital Signs Vital Sign Reading Time Taken Comments Blood Pressure 138/52 09/07/2024 11:14 AM CDT Pulse 76 09/07/2024 11:14 AM CDT Temperature - - Respiratory Rate 12 11/09/2019 3:12 PM CDT Oxygen Saturation 96% 09/07/2024 11:14 AM CDT Inhaled Oxygen Concentration - - Weight 83.9 kg (185 lb) 09/07/2024 11:14 AM CDT Height 170.2 cm (5' 7) 09/07/2024 11:14 AM CDT Body Mass Index 28.98 09/07/2024 11:14 AM CDT Plan of Treatment Health Maintenance Due Date Last Done Comments Depression Screening 1940 Fall Risk Assessment 1940 Hepatitis B Screening 1958 Abdominal Aortic Aneurysm (A AA) Screen 2005 Well Visit 65+ 2005 Influenza Vaccine (#1) 2024 4, 02/08/2019, 12/29/2017, Additional history exists DTaP/Tdap/Td Vaccine (2 - Td or Tdap) 02/06/2025 02/06/2015, 05/31/2004 Pneumococcal vaccine 65+ Completed 016, 02/06/2015, 04/14/2006 Zoster Vaccine Completed 01/31/2018, 08/13, 02/02/2013 Insurance AETNA MEDICARE GOLD [facility] Address: [facility] [address] [place] [address] AETNA MEDICARE GOLD Care Teams Cnc Maintenance Technician Relationship Specialty Start Date End Date Laura Bartlett MD PCP - General Family Practice 01/16/18
--- OUTSIDE RECORDS SUMMARY | 2024-12-08 09:58 | XMS_ITS | Clinical Summary ---
Author Organization [facility] Address [address] Mace: Gino Preshmuel [place] [address] Care Team Providers Care Clam Dredge Boat Captain Name Role Phone Unavailable Primary Care Provider Unavailabl e Allergies Active Allergy Reactions Criticality Noted Date Comments Aspirin Unknown 08/26/2021 Medications traMADoL (ULTRAM) 50 mg tablet Take 1 Tablet (50 mg) by mouth every 6 hours as needed. 20 Tablet 3 4:05 PM CDT 07/19/19 23 Active ferrous sulfate 325 mg (65 mg iron) Tablet, Delayed Release (E.C.) Take 1 Tablet (325 mg) by mouth 2 times daily. 180 Tablet 1 4 11:33 AM CDT 10/30/19 24 Active cholecalcifero l, Vitamin D3, 50 mcg (2,000 unit) Tablet Take 1 tablet by mouth daily 90 Tablet 3 5 11:13 AM CDT 03/29/20 24 Active albuterol sulfate HFA 90 mcg/actuation aerosol inhaler INHALE 2 PUFFS BY MOUTH EVERY 4 HOURS NEEDED FOR SHORTNESS OF BREATH OR WHEEZING. 8.5 Gram 5 1:04 PM WATCH ASSEMBLY INSPECTOR 06/01/19 25 Active ferrous sulfate 325 mg (65 mg iron) Tablet, Delayed Release (E.C.) Take 1 Tablet (325 mg) by mouth 2 times daily. 180 Tablet 1 5 1:03 PM WATCH ASSEMBLY INSPECTOR 06/02/19 25 Active ticagrelor (BRILINTA) 60 mg Tablet Take 1 Tablet (60 mg) by mouth 2 times daily. 180 Tablet 1 5 11:27 AM CDT 07/29/19 25 Active azilsartan medoxomiL (EDARBI) 80 mg Tablet Take 1 Tablet (80 mg) by mouth daily. 90 Tablet 1 5 11:27 AM CDT 07/29/19 25 Active latanoprost (XALATAN) 0.005 % solution Administer 1 Drop in left eye daily at bedtime. 7.5 mL 3 5 11:53 AM CDT 08/28/19 25 Active hydroCHLOROthi azide 25 mg tablet Take 1 Tablet (25 mg) by mouth daily. 90 Tablet 3 5 11:13 AM CDT 09/25/19 25 Active cloNIDine HCL (CATAPRES) 0.2 mg tablet Take 1 Tablet (0.2 mg) by mouth daily. 90 Tablet 1 5 11:13 AM CDT 09/25/19 25 Active atorvastatin (LIPITOR) 40 mg tablet Take 1 Tablet (40 mg) by mouth daily at bedtime. 90 Tablet 1 5 11:13 AM CDT 09/25/19 25 Active omeprazole (PriLOSEC) 20 mg Capsule, Delayed Release(E.C.) Take 1 Capsule (20 mg) by mouth daily. 90 Capsule 1 5 11:13 AM CDT 09/25/19 25 Active fluticasone furoate-vilant Jacques (BREO ELLIPTA) 100-25 mcg/dose Disk with Device Administer 1 inhalation every 24 hours as directed 180 Each 1 5 11:28 AM CDT 12/02/19 25 Active fenofibrate (LOFIBRA) 54 mg Take 1 Tablet (54 mg) by mouth daily. 90 Tablet 1 5 11:30 AM CDT 08/26/19 25 025 Discontinued Encounters Date Type Department Care Team Description 11/17/2024 External Device Data [facility] ABSTRACTION Provider, Abstract from Last 3 Months Immunizations Immunization Administration Dates Next Due (COMIRNATY)(12 [...] (3 - season) 08/22/202402/2024, 02/18/2023 INFLUENZA VACCINE (#1) 2024 , 02/18/2023, 03/12/2022 Insurance RX AETNA Medicare Part D RX BE PLANS (INTERNAL) [facility]
--- OUTSIDE RECORDS SUMMARY | 2024-12-08 09:58 | XMS_ITS | Encounter Summary ---
Author Organization [facility] Address [address] [address] Care Team Providers Care Engineering Inspection Assistant Name Role Phone Jorge Conner MD Primary Care Provider [phone]- [phone] Jorge Conner MD Primary Care Provider [phone]- [phone] Laura Bartlett MD Primary Care Provider Encounter Details Date Type Department Care Team (Latest Contact Info) Description 06/12/2016 Orders Only [facility] Card[facility] ProviderBrittnee MD [address] [place] [id number] Social History Tobacco Use Types Packs/Day Years Used Date Smoking Tobacco: Former Comments:Smoking History Pac ks/day: 1 Packs Alcohol Use Standard Drinks/Week Comments No 0 (1 standard drink = 0.6 oz pur e alcohol) Sex and Gender Information Value Date Recorded Sex Assigned at Not on file Legal Sex Male 11:43 AM MANAGER VALIDATION Gender Identity Not on file Sexual Orientation [...] on filedocumented in this encounter Care Teams Engineering Inspection Assistant Relationship Specialty Start Date End Date Jorge Conner MD [address] [place] [address] PCP - General 07/12/16 01/15/18 Jorge Conner MD [address] [place] [address] [address] PCP - General 02/03/13 07/11/16 Laura Bartlett MD [address] [place] [address] PCP - General Family Practice 01/16/18 documented as of this encounter
[2024-12-08 14:19] LABS: Hematocrit 37.4 % (42.0-52.0); Hemoglobin 11.6 g/dL (14.0-18.0); Immature Granulocyte Percent A 0.5 % (0-0.5); Lymphocytes Absolute Auto 0.98 K/mm3 (0.9-3.2); Mean Corpuscular HGB Conc 31.0 g/dl (32-36); Mean Corpuscular Hemoglobin 28.4 pg (26-34); Mean Corpuscular Volume 91.4 fl (80-100); Nucleated Red Blood Cells Absolute Auto 0.000 K/mm3 (0.0-0.012); Nucleated Red Blood Cells Perc 0.0 % (0.0-0.2); Platelet Count Result 155 k/mm3 (150-375); Red Blood Count 4.09 M/mm3 (4.6-6.20); White Blood Count 6.2 K/mm3 (4.5-10.0)
[2024-12-08 16:07] LABS: Alanine Aminotransferase 19 U/L (6-50); Albumin Level 4.4 g/dL (3.5-5.1); Alkaline Phosphatase 61 U/L (38-126); Anion Gap 9 mmol/L (4-12); Aspartate Amino Transferase 37 U/L (17-59); Bilirubin,Total 0.5 mg/dL (0.2-1.3); Blood Urea Nitrogen 40 mg/dL (9-20); Calcium 9.4 mg/dL (8.4-10.2); Carbon Dioxide 26 mmol/L (22-30); Chloride 104 mmol/L (98-107); Cholesterol 97 mg/dL (0-200); Estimated Glomerular Filt Rate 47; Glucose 106 mg/dL (65-110); HDL Direct 34 mg/dL; Potassium 4.7 mmol/L (3.4-5.0); Sodium 139 mmol/L (137-145); Total Protein 7.0 g/dL (6.3-8.2); Triglycerides 79 mg/dL (<150)
[2024-12-08 16:14] LABS: Iron 45 ug/dL (49-181)
[2024-12-08 16:25] LABS: Percent Iron Saturation 12 % (20-50)
[2024-12-08 16:45] LABS: Prostate Specific Antigen 3.5 ng/mL (< OR = 4.0)
[2024-12-08 16:50] LABS: Thyroid Stimulating Hormone Reflex 1.170 uIU/mL (0.465-4.68)
[2024-12-08 17:01] LABS: Ferritin 15.10 ng/mL (11.1-264)
[2024-12-08 17:14] LABS: Hemoglobin A1C 6.2 % (<5.7)
[2024-12-08 17:30] LABS: Vitamin B12 368.0 pg/mL (239-931)
== END 2024-12-08 09:43 | disposition home or self-care (01) ==
LOC: ANHGOSHLAB 09:43
PROVIDERS: PCP Family Medicine; Visit Provider Family Medicine
DX: D64.9 Anemia, unspecified (principal); I10 Essential (primary) hypertension; E11.9 Type 2 diabetes mellitus without complications; E55.9 Vitamin D deficiency, unspecified; Z12.5 Encounter for screening for malignant neoplasm of prostate
CPT/HCPCS: 36415; 80053; 80061; 82306; 82607; 82728; 82746; 83036; 83540; 83550; 84153; 84443; 85025; G0103

== ENCOUNTER 2024-12-09 13:08 | Outpatient (NON) | payer MEDICARE, SELFPAY ==
--- OUTSIDE RECORDS SUMMARY | 2010-01-30 07:30 | XMS_ITS | Continuity of Care Document ---
Author Organization [facility] Address [address] [place] [address] [address] [place] [address] Phone Care Team Providers Care Guyline Operator Name Role Phone Eleonora Benton Unavailable Unavailable Procedures Procedure Date Eye Exam & Treatment Refraction Eye Exam & Treatment Refraction Advance Directives Directive Yes / No Effective Date File Name No Information Encounters Encounter Description Practice Location Reason(s) For Visit Diagnoses Date Provider Providers Copied on Encounter [facility], [address] [place] [address] [address], [place], [place], [id number], tel:[phone] [facility] No Information 9-201 0 Serenity Crews. [address] [facility] [address] , [address], [place], [place], [facility], . tel:[phone] [facility], [address] [place] [address] [address], [place], [place], [id number], tel:[phone] [facility] No Information 3-200 9 Serenity Baugh [address] , [address], [place], [place], [facility], [place]. tel:[phone] Family History Family Member Type Diagnosis Age At Onset No Information Payers Payer name Insurance type Covered constitution party ID Authoriza timelissa(s) [employer] Plan CI [id number] Social History Type Description Quantity Date Captured Comments Sex Male Smoking Status No Information Chief Complaint And Reason For Visit No Information Reason For Referral Reason For Referral No Information History Of Present Illness Encounter Date Complaint History Of Prese nt Illness No Information Functional Status Date Functional Assessmen t No Information Instructions Date Instruction Additional Infor mation No Information Assessments Type Assessment Date No Information Patient Care Teams Name Effective Dates (start - stop) Status Members No Information
--- OUTSIDE RECORDS SUMMARY | 2024-12-09 13:19 | XMS_ITS | Clinical Summary ---
Author Organization [facility] Address [address] [place] [address] Care Team Providers Care Cyber Crime Investigator Name Role Phone Laura Bartlett MD Primary Care Provider Allergies Active Allergy Reactions Criticality Noted Date Comments Aspirin Hives 12/22/2020 Medications cloNIDine 0.2 MG tablet Take 0.2 mg by mouth daily. Active fenofibrate 54 MG tablet Take 54 mg by mouth daily with breakfast. Active vitamin D2, ergocalciferol, 55763 UNITS capsule Take 50,000 Units by mouth [...] Q1 yr. Coronary artery disease invo lving [place] coronary artery of [place] heart without angina pectoris 01/13/2017 Overview (05/20/2022): [...] with good control. No changes made. Immunizations Immunization Administration Dates Next Due Fluad influenza vaccine, [place] drivalent (aIIV4), Inactivated, adjuvanted, preservative free, 0.5 mL,IM use 02/08/2019,12/29/2017 Pneumococcal (Prevnar 13) 02/06/2015 Shingrix 01/31/2018,09/01/2017 Zoster (Zostavax) 13639 Unt/0.65Ml 02/02/2013 Family History Medical History Relation Comments cardiovascular disease Father Alzheimers Mother cardiovascular disease Mother Relation Status Comments Father Mother Social History Tobacco Use Types Packs/Day Years Used Date Smoking Tobacco: Every Day Cigarettes 1 55 Passive Smoke Exposure: Never Alcohol Use Standard Drinks/Week Comments Not Currently 0 (1 standard drink = 0.6 oz pur e alcohol) stopped drinking [id number] Sex and Gender Information Value Date Recorded [...] 10:28 AM CDT Height 170.2 cm (5' 7) 08/06/2023 10:28 AM CDT Body Mass Index 26.94 08/06/2023 10:28 AM CDT Plan of Treatment Health Maintenance Due Date Last Done Comments ASCVD LDL 1940 ASCVD Statin 1940 DTaP, Tdap and Td Vaccines ( 1 - Tdap) 12/17/1959 Annual Medicare Wellness Visit 2005 Pneumococcal Vaccine: 50+ Years (2 of 2 - PPSV23) 04/03/2015 02/06/2015 RSV Immunization or 60+ Years (1 - 1-dose 75+ series) 12/17/2015 COVID-19 Vaccine (4 - 2023-2 5 season) 2023 02/18/2023, 06/13/2020, 05/11/2020 Zoster Vaccines Completed 01/31/2018, 09/01/2017, 02/02/2013 Meningococcal [...] 12:43 PM 12/22/2020 11:41 PM Care Teams Cyber Crime Investigator Relationship Specialty Start Date End Date Laura Bartlett MD [address] [place] [address] PCP - General FAMILY PRACTICE 12/22/20
--- OUTSIDE RECORDS SUMMARY | 2024-12-09 13:19 | XMS_ITS | Clinical Summary ---
Author Organization [facility] Address [address] [place] [phone] Care Team Providers Care Emergency Care Tech Name Role Phone Laura Bartlett MD Primary [...] carotid arteries based on carotid duplex at [facility]. Continue risk factor modification including Brilinta, Lipitor and good blood pressure control. Follow up in 1 year with repeat carotid duplex. Hx of CABG 10/27/2018 Cardiac pacemaker 07/30/2018 Overview (07/30/2018): Biotronik Dual Pacemaker. Dx; High Grade AVB, Syncope. DOI 07/27/2018-João. Biotronik remote monitoring. Office pacemaker checks Q1 yr. 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
--- OUTSIDE RECORDS SUMMARY | 2024-12-09 13:19 | XMS_ITS | Encounter Summary ---
Author Organization [facility] Healthcare Address [address] [place] [address] Care Team Providers Care Business Services Assistant Name Role Phone Laura Bartlett MD Primary Care Provider Encounter Details Date Type Department Care Team (Late st Contact Info) Description 06/01/2024 Orders Only [facility] Health Information Management [address] [place] [id number] Scanning, Provider Social History Tobacco Use Types Packs/Day Years Used Date Smoking Tobacco: Light Smoker Smokeless Tobacco: Never Comments:Smoking History Pac ks/day: 1 Packs Alcohol Use Standard Drinks/Week Comments No 0 (1 standard drink = 0.6 oz pur e alcohol) Sex and Gender Information Value Date Recorded Sex Assigned at Not on file 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
--- OUTSIDE RECORDS SUMMARY | 2024-12-09 13:19 | XMS_ITS | Encounter Summary ---
Author Organization [facility] Address [address] [address] Care Team Providers Care Vice Investigator Name Role Phone Jorge Conner MD Primary Care Provider [phone]- [phone] Jorge Conner MD Primary Care Provider +1- [phone] Laura Bartlett MD Primary Care Provider Encounter Details Date Type Department Care Team (Latest Contact Info) Description 06/12/2016 Orders Only [facility] [place] ProviderBrittnee MD [address] [place] [id number] Social History Tobacco Use Types Packs/Day Years Used Date Smoking Tobacco: Former Comments:Smoking History Pac ks/day: 1 Packs Alcohol Use Standard Drinks/Week Comments No 0 (1 standard drink = 0.6 oz pur e alcohol) Sex and Gender Information Value Date Recorded Sex Assigned at Not on file Legal Sex Male 11:43 AM BUSINESS INTELLIGENCE ARCHITECT Gender Identity Not on file Sexual [...] on filedocumented in this encounter Care Teams Vice Investigator Relationship Specialty Start Date End Date Jorge Conner MD [address] [place] [address] PCP - General 07/12/16 01/15/18 Jorge Conner MD [address] [place] [place] [address] PCP - General 02/03/13 07/11/16 Laura Bartlett MD [address] [place] [address] PCP - General Family Practice 01/16/18 documented as of this encounter
--- OUTSIDE RECORDS SUMMARY | 2024-12-09 13:19 | XMS_ITS | Clinical Summary ---
Author Organization [employer] [facility] Address [address] Mace: Gino Preshmuel [place]ILL[place] [id number] Care Team Providers Care Photography Assistant Name Role Phone Unavailable Primary Care Provider [...] OR WHEEZING. 8.5 Gram 5 1:04 PM UPKEEP WORKER 06/01/19 25 Active ferrous sulfate 325 mg (65 mg iron) Tablet, Delayed Release (E.C.) Take 1 Tablet (325 mg) by mouth 2 times daily. 180 Tablet 1 5 1:03 PM UPKEEP WORKER 06/02/19 25 Active ticagrelor (BRILINTA) 60 mg [...]
[2024-12-09 17:35] LABS: MALB Creatinine Ratio 41.8 mg/g (0-30)
== END 2024-12-09 13:09 | disposition home or self-care (01) ==
LOC: ANHGOSHLAB 13:09
PROVIDERS: PCP Family Medicine; Visit Provider Family Medicine
DX: D64.9 Anemia, unspecified (principal); E11.9 Type 2 diabetes mellitus without complications; E55.9 Vitamin D deficiency, unspecified
CPT/HCPCS: 82043